=== PATIENT | male | born 1930 | race Asian ===

== ENCOUNTER 2019-10-24 18:59 | Inpatient (IN) | payer OTHER, SELFPAY ==
[~2019-10-24] VITALS: Ht 165.1 cm; Wt 58.5 kg
[2019-10-24 19:30] VITALS: BP 154/85
--- NOTE | 2019-10-24 19:30 | NUR ---
CONSUELO FROM [facility] FOR C/O ALOC SINCE THE AM PER EMS. PT IS RESPONSIVE ONLY TO PAINFUL STIMULI. 97% IN 15L NON REBREATHER. GCS 10. RESP EVEN AND LABORED, SHALLOW. DIMIMISHED LUNG SOUNDS IN BILAT BASES. VSS. PATIENT IS A COVID POSITIVE AND PLACED IN ISO BED 9. PMHX NOT LIMITED TO: ALZHEIMERS, ANEMIA, ENCEPALOPATHY. DM II, COVID19
--- NOTE | 2019-10-24 19:31 | NUR ---
BIBA TO BED 9
--- NOTE | 2019-10-24 19:40 | NUR ---
EKG PERFORMED AT BEDSIDE
--- NOTE | 2019-10-24 19:41 | NUR ---
UNABLE TO CONTACT FAMILY. PHONE GOES TO .
--- NOTE | 2019-10-24 19:52 | NUR ---
FAMILY MEMBER EDUARD PHIPPS CALLED BACK. ON PHONE WITH DAVID DORMAN
[2019-10-24 20:10] LABS: BASOPHILS # (AUTO) 0.1 K/uL (0.00-0.22); BASOPHILS % (AUTO) 0.9 % (0.0-2.0); HEMATOCRIT 35.1 % (36-52); HEMOGLOBIN 11.3 g/dL (12.0-18.0); LYMPHOCYTES # (AUTO) 0.9 K/uL (2.0-11.5); LYMPHOCYTES % (AUTO) 13.9 % (20.5-51.1); MEAN CORPUSCULAR HEMOGLOBIN 30 pg (27-31); MEAN CORPUSCULAR HGB CONC 32 g/dL (33-37); MEAN CORPUSCULAR VOLUME 93.5 fL (80-94); MONOCYTES # (AUTO) 0.5 K/uL (0.8-1.0); MONOCYTES % (AUTO) 7.3 % (1.7-9.3); NEUTROPHILS # (AUTO) 4.9 K/uL (1.8-7.7); NEUTROPHILS % (AUTO) 77.9 % (42.2-75.2); PLATELET COUNT (AUTO) 165 K/uL (140-450); RED BLOOD CELL COUNT(AUTO) 3.76 MIL/uL (4.20-6.10); RED CELL DISTRIBUTION WIDTH 14.6 % (11.6-13.7); WHITE BLOOD COUNT (AUTO) 6.3 K/uL (4.8-10.8)
[2019-10-24 20:19] LABS: ANION GAP 10.7 (8-16); CARBON DIOXIDE 31.3 mmol/L (21-32); CHLORIDE 110 mmol/L (98-107); CREATININE 1.3 mg/dL (0.6-1.3); GLUCOSE 175 mg/dL (74-106); SODIUM SERUM 148 mmol/L (136-145); UREA NITROGEN, BLOOD 31 mg/dL (7-18)
[2019-10-24 20:24] LABS: ALBUMIN 2.3 g/dL (3.4-5.0); ASPARTATE AMINOTRANSFERASE 33 U/L (15-37); TOTAL BILIRUBIN 0.3 mg/dL (0.0-1.0)
[2019-10-24 21:00] LABS: FIBRINOGEN 404 mg/dL (200-400)
--- NOTE | 2019-10-24 21:01 | NUR ---
COVID SWAB PERFORMED AT BEDSIDE AND WALKED TO LAB
[2019-10-24 21:09] LABS: D-DIMER 3740 ng/ml (0-400)
[2019-10-24 21:19] LABS: APPEARANCE,URINE CLEAR (CLEAR); BILIRUBIN,URINE NEGATIVE (NEGATIVE); BLOOD, URINE TRACE-I (NEGATIVE); COLOR,URINE YELLOW (YELLOW); LEUKOCYTE ESTERASE ,URINE TRACE (NEGATIVE); NITRITE, URINE POSITIVE (NEGATIVE); UGLUCOSE NEGATIVE (NEGATIVE)
[2019-10-24] MEDS ORDERED: NACL 0.9% 1,000 ML IV ONE (21:40)
[2019-10-24] MEDS ORDERED: VANCOMYCIN 1,000 MG in DEXTROSE 5% 250 ML IV ONE (21:40)
[2019-10-24] MEDS ORDERED: CEFEPIME 2,000 MG in DEXTROSE 5% 100 ML IV ONE (21:40)
[2019-10-24] MEDS ORDERED: ACETAMINOPHEN 650 MG SUPP RC ONE (21:45)
[2019-10-24] MEDS ORDERED: CEFEPIME 2,000 MG VIAL IV ONE (22:11)
[2019-10-24] MEDS ORDERED: VANCOMYCIN 1,000 MG VIAL ONE (22:12)
[2019-10-24] MEDS ORDERED: DOCUSATE SODIUM 100 MG GELCAP PO PRN ×2 (22:20→22:30)
[2019-10-24] MEDS ORDERED: MORPHINE SULFATE 2 MG/ML SYR IVP PRN ×2 (22:20→22:30)
[2019-10-24] MEDS ORDERED: ONDANSETRON 4 MG/2 ML VIAL IM/IVP PRN ×2 (22:20→22:30)
[2019-10-24] MEDS ORDERED: ACETAMINOPHEN 325 MG TAB PO PRN ×2 (22:20→22:30)
[2019-10-24] MEDS ORDERED: HYDROcodone/APAP 5/325 MG 1 TAB TAB PO PRN ×2 (22:20→22:30)
--- NOTE | 2019-10-24 22:30 | NUR ---
PT TAKEN OFF NON-REBREATHER AND PT BEGAN TO DESAT TO 85-88%. PT PLACED ON 2L O2 VIA NASAL CANNULA. PT MAINTAINTED AT 97% ON 2L .
[2019-10-24 22:42] LABS: PROTHROMBIN TIME 9.4 secs (10.8-13.4)
[2019-10-24] MEDS ORDERED: MEMA28CE1 PO (23:07)
[2019-10-24] MEDS ORDERED: ALEN70TA1 PO (23:07)
[2019-10-24] MEDS ORDERED: AZEL6SOL6 OP (23:07)
[2019-10-24 23:45] VITALS: BP 139/79
--- NOTE | 2019-10-24 23:45 | NUR ---
RECEIVED PT AND BEDSIDE REPORT FROM ER NURSE AT 2345 ON 10/24/2019. PT IS A&O X1, APHASIC. RESPIRATIONS ARE EVEN AND UNLABORED. CHEST RISE IS SYMMETRICAL. PT CAME FROM [facility] AND IS DX WITH COVID 19, PNA, AND ALOC. PT IS ON 3 L NC AND HAS O2 SAT AT 96%. SKIN IS WARM, DRY, AND INTACT. IV IS IN THE RIGHT WRIST A 22 GAUGE RUNNING NS. NO SIGNS OF DISTRESS NOTED. BED IS IN THE LOWEST POSITION AND CALL LIGHT IS IN REACH. DROPLET AND CONTACT PRECAUTIONS ARE IN PLACE. PLAN OF CARE WAS DISCUSSED AND WILL CONTINUE TO MONITOR.
--- NOTE | 2019-10-24 23:46 | NUR ---
Patient will be admitted to care of DR MCCLURE. Admited to TELE. Will go to room 123Belongings list completed. Report to LINDEN/SHAYY RUIZ.
[2019-10-24 23:50] LABS: CHOL/HDL RATIO 2.6 (1-4.5); PHOSPHORUS 3.2 mg/dL (2.5-4.9); THYROID STIMULATING HORMONE 0.42 uIU/mL (0.34-3.74)
[2019-10-25] MEDS ORDERED: DEXTROSE 50% 50 ML SYR IVP PRN (00:20)
--- NOTE | 2019-10-25 00:25 | NUR ---
AN ORDER FOR NG TUBE PLACEMENT IS ACTIVE. A 16 FR NG TUBE WAS PLACED THROUGH THE LEFT NARE INTO THE STOMACH. PT TOLERATED THE PROCEDURE WELL. O2 SAT WAS 96% THROUGHOUT THE PROCEDURE AND PATIENT WAS PLACED BACK ON 3L NC FOLLOWING THE PROCEDURE. USED A PUFF OF AIR AND THE STETHOSCOPE TO ENSURE CORRECT PLACEMENT WHICH WAS HEARD IN THE STOMACH. PT WAS GIVEN EDUCATION PRIOR TO INSERTION. WILL FOLLOW UP WITH XRAY FOR CORRECT PLACEMENT.
[2019-10-25] MEDS: DEXT 5% / NACL 0.9% 500 ML IV SCH ×3 (01:18→06:38)
--- NOTE | 2019-10-25 01:55 | NUR ---
INFORMED DR. DIEGO THAT PT LACTIC ACID TRENSING UP FROM 2.9 TO 3.6
--- NOTE | 2019-10-25 02:48 | NUR ---
X-RAY RESULT FOR NGT INSERTION REVEALED: NGT TUBE IN THE STOMACH. CALLED [employer] FOR THE TUBE FEEDING, SAID HE WILL BRING IT TO THE STATION. AWAITING THE TUBE FEEDING FORMULA TO BE DELIVERED.
[2019-10-25] MEDS ORDERED: cefTRIAXone 1,000 MG VIAL ONE (03:21)
--- NOTE | 2019-10-25 03:30 | NUR ---
CHARGE NURSE CHECKED THE NGT TUBE BEFORE STARTING THE NGT TUBE FEEDING, WITH XRAY RESULT THAT IS IS WELL PLACED WITHIN THE STOMACH, OK TO START THE NGT TUBE FEEDING.
--- NOTE | 2019-10-25 03:30 | NUR ---
CHANGED PATIENT AND TURNED PATIENT TO SIDE, OFFLOADED PRESSURE AREAS WITH PILLOWS. PT IS THIN, CACHECTIC BUT NO PRESSURE SORES, LOWER EXTREMITY CONTRACTED, PLACED PILLOWS AND HEELS OFFLOADED.
--- NOTE | 2019-10-25 03:50 | NUR ---
TUBE FEEDING FLUCERNA 1.2 IS RUNNING AT 10 CC PER HOUR PER ORDER. NG TUBE WAS CHECKED FOR PLACEMENT BEFORE STARTING FEEDING AND IT WAS NOTED IN THE STOMACH. THERE ARE ALSO WATER FLUSHES OF 200 CC Q 6 HR. WILL MONITOR PT TO ENSURE HE IS TOLERATING FEEDING WELL AND WILL ENHANCE TO 50 CC PER HOUR IF TOLERATED. NO SIGNS OF DISTRESS NOTED Addendum: 10/25/19 at 0412 by Akila Griffin RN JORDYN
[2019-10-25 04:00] VITALS: BP 146/76
--- NOTE | 2019-10-25 04:00 | NUR ---
ASKED DR. DIEGO THAT IF IT IS OK TO GIVE THE ROCEPHIN IVF AT 0400AM, HE SAID OK TO GIVE IT THIS TIME.
--- NOTE | 2019-10-25 04:00 | NUR ---
PT IS AWAKE IN A SEMI FOWLERS POSITION. SOME COUGHING IS PRESENT AND NON-PRODUCTIVE. VS WERE TAKEN AND TEMPERATURE WAS 100.4 F. PT WAS GIVEN TYLENOL 650 MG PRN PER ORDER. WILL CONTINUE TO MONITOR TEMPERATURE. PT'S SOILED LINENS WERE CHANGED AND GOWN WAS CHANGED. PT IS REPOSITIONED Q 2 HR.
--- NOTE | 2019-10-25 06:00 | NUR ---
PT IS SLEEPING WITH THE HOB AT 45 DEGREES. THE PT DOES NOT HAVE FACIAL GRIMACING AND DOESN'T SHOW ANY SIGNS OF DISTRESS. NG TUBE FEEDING IS RUNNING AND IV IS PATENT AND INTACT.
[2019-10-25 06:42] LABS: BASOPHILS # (AUTO) 0.1 K/uL (0.00-0.22); BASOPHILS % (AUTO) 0.6 % (0.0-2.0); HEMATOCRIT 33.3 % (36-52); HEMOGLOBIN 10.7 g/dL (12.0-18.0); LYMPHOCYTES # (AUTO) 0.8 K/uL (2.0-11.5); LYMPHOCYTES % (AUTO) 9.1 % (20.5-51.1); MEAN CORPUSCULAR HEMOGLOBIN 30 pg (27-31); MEAN CORPUSCULAR HGB CONC 32 g/dL (33-37); MEAN CORPUSCULAR VOLUME 93.8 fL (80-94); MONOCYTES # (AUTO) 0.4 K/uL (0.8-1.0); MONOCYTES % (AUTO) 4.2 % (1.7-9.3); NEUTROPHILS # (AUTO) 7.5 K/uL (1.8-7.7); NEUTROPHILS % (AUTO) 86.1 % (42.2-75.2); PLATELET COUNT (AUTO) 144 K/uL (140-450); RED BLOOD CELL COUNT(AUTO) 3.56 MIL/uL (4.20-6.10); RED CELL DISTRIBUTION WIDTH 14.4 % (11.6-13.7); WHITE BLOOD COUNT (AUTO) 8.7 K/uL (4.8-10.8)
--- NOTE | 2019-10-25 06:44 | NUR ---
PT'S SON WAS CONTACTED TO OBTAIN CONSENT FOR COVID 19 PLASMA TRANSFUSION. LEFT A MESSAGE ON THE PHONE NUMBER IN THE CHART TO RETURN OUR CALL.
[2019-10-25 07:03] LABS: ANION GAP 13.1 (8-16); CARBON DIOXIDE 27.3 mmol/L (21-32); CHLORIDE 110 mmol/L (98-107); CREATININE 1.4 mg/dL (0.6-1.3); GLUCOSE 200 mg/dL (74-106); POTASSIUM 3.4 mmol/L (3.5-5.1); SODIUM SERUM 147 mmol/L (136-145); UREA NITROGEN, BLOOD 30 mg/dL (7-18)
[2019-10-25 07:15] LABS: MAGNESIUM 1.9 mg/dL (1.8-2.4); PHOSPHORUS 1.5 mg/dL (2.5-4.9)
--- NOTE | 2019-10-25 07:26 | NUR ---
[facility] CALLED AND REORTED LACTIC ACID IS 4.8, TRENDING UP FROM LAST READING. WILL ENDORSE TO RM LUCAS, TRIED CALLING DR. MCKINNEY BUT IS NOT ANSWERING, ALREADY AT THE AM CONFERENCE.
[2019-10-25] MEDS: BLOOD GLUCOSE MONITORING 1 DEV DEV FS SCH ×4 (07:31→20:17)
[2019-10-25] MEDS: INSULIN LISPRO SLIDING SCALE 100 UNITS/ML VIAL SUBQ PRN ×3 (07:31→20:17)
--- NOTE | 2019-10-25 07:40 | NUR ---
RECEIVED PT AND BEDSIDE REPORT FROM FLUID JET CUTTER OPERATOR RNSARA, FOR CONTINUITY OF CARE. PT IS A&O X1, APHASIC. RESPIRATIONS ARE EVEN AND UNLABORED. CHEST RISE IS SYMMETRICAL. PT ON 3 L NC AND HAS O2 SAT AT 96%. SKIN IS WARM, DRY, AND INTACT. IV IS IN THE RIGHT WRIST A 22G RUNNING D5NS 110ML/HR. NO SIGNS OF DISTRESS NOTED. BED IS IN THE LOWEST POSITION AND CALL LIGHT IS IN REACH. DROPLET AND CONTACT PRECAUTIONS ARE IN PLACE FOR R/O COVID-19. PLAN OF CARE WAS DISCUSSED AND WILL CONTINUE TO MONITOR.
[2019-10-25] MEDS ORDERED: DEXT 5% /NACL 0.9% 1,000 ML IV SCH (07:48)
[2019-10-25 08:00] VITALS: BP 114/56
--- NOTE | 2019-10-25 09:27 | NUR ---
PATIENT HAS BEEN SCREENED AND CATEGORIZED HIGH NUTRITION RISK. PATIENT WILL BE SEEN WITHIN 1-2 DAYS OF ADMISSION. 10/25/19-10/26/[address]
[2019-10-25] MEDS: ASCORBIC ACID 500 MG TAB PO SCH (10:20)
[2019-10-25] MEDS: AZITHROMYCIN 250 MG TAB PO SCH (10:20)
[2019-10-25] MEDS: DEXAMETHASONE 4 MG TAB PO SCH (10:21)
[2019-10-25] MEDS: ZINC SULF 220 MG CAP PO SCH (10:25)
--- NOTE | 2019-10-25 10:41 | NUR ---
MORNING MEDICATIONS GIVEN. NO SIGNS OF DISTRESS NOTED. TUBE FEEDING CHECKED THROUGH AUSCULTATION AND IN PLACE, NO RESIDUALS NOTED. V/S TAKEN AND WNL. WILL CONTINUE TO MONITOR.
--- NOTE | 2019-10-25 10:50 | NUR ---
PT. IS CHANGED, CLEANED AND TURNED. NO SIGNS OF DISTRESS NOTED. SKIN IS INTACT. WILL CONTINUE TO MONITOR.
[2019-10-25 12:00] VITALS: BP 141/59
--- NOTE | 2019-10-25 12:36 | NUR ---
PT. ADMITTED WITH LOW MARILEE SCALE AT RISK,CONTINUE TO FOLLOW PRESSURE ULCER PREVENTION INTERVENTIONS. -TURN AND REPOSITION PATIENT Q 2H -ASSESS AND MONITOR SKIN CONDITION DURING POSITION CHANGE -OFFLOAD BILATERAL HEELS BY PLACING PILLOWS UNDER CALVES AT ALL TIMES, UNLESS OTHERWISE CONTRAINDICATED -PRESSURE REDISTRIBUTION BY PLACING PILLOWS AND OFFLOADING SACRALCOCCYX -KEEP SKIN CLEAN AND DRY AT ALL TIMES.
--- NOTE | 2019-10-25 15:13 | NUR ---
10/25/19 RD INITIAL ASSESSMENT COMPLETED PLEASE REFER TO NUTRITION ASSESSMENT UNDER CARE ACTIVITY FOR ESTIMATED NUTRITIONAL NEEDS. 1. RECOMMEND INCREASING GOAL RATE OF GLUCERNA 1.2 TO 60 ML/HR X 24 HOURS -THIS WILL PROVIDE 1728 CALORIES AND 86 GM PROTEIN WHICH MEETS 92% OF ESTIMATED CALORIE NEEDS AND 100% OF ESTIMATED PROTEIN NEEDS 2. CONTINUE FREE WATER FLUSH OF 200 ML Q6H 3. RECOMMEND A SWALLOWING EVALUATION IF PATIENT BECOMES MORE ORIENTED FOR PO INTAKE 4. RD TO FOLLOW-UP 2-3 DAYS, HIGH RISK JOSEFINA LAMBERT RD
[2019-10-25 15:31] LABS: RBC,URINE 0-5 /HPF (0-5); WBC,URINE 0-5 /HPF (0-5)
[2019-10-25 16:00] VITALS: BP 136/74
--- NOTE | 2019-10-25 16:20 | NUR ---
PT. IS CLEANED, CHANGED, AND TURNED. NO SIGNS OF DISTRESS NOTED. WILL CONTINUE TO MONITOR.
--- NOTE | 2019-10-25 16:24 | NUR ---
DC PLANNIN YRS OLD MALE PATIENT WAS ADMITTED FROM [facility] WITH A DX OF ALOC, COVID-19 AND PNEUMONIA . PATIENT HAS A HX OF. DM DEMENTIA ,ANEMIA AND OSTEOPOROSIS. CXR SHOWED BILATERAL PULMONARY OPACITIES. STARTED IV VANCOMYCIN ROCEPHIN AND IVF BLOOD AND URINE CULTURE PENDING. COVID TEST PENDING. CONSULTED WITH HOME HOUSEKEEPER. DC PLAN TO GO BACK TO [facility] TO FOLLOW. Addendum: 10/27/19 at 1207 by Blanca Aparicio CM DC PLANNING: COVID TEST POSITIVE, SEEN BY DR ALVARENGA AND DR PERAZA ,CONTINUE WITH DECADRON PO AND IV ABX AND PRONE POSITION LEVAQUIN. DC PLAN TO GO BACK TO [facility] ,FAXED ALL THE PAPER WORK , TRANSPORT WILL BE COVERED [employer] [facility] ,[facility] [phone] . TO FOLLOW Addendum: 10/27/19 at 1410 by Pam Nam CM SPOKE WITH NICKIE WITH [employer], SET UP TRANSPORTATION FOR TOMORROW MORNING WITH [facility] 11:00 A.M. REFERENCE #[id number]. THIS WILL BE AN AMBULANCE COMPANY SINCE THE PATIENT IS COVID POSITIVE. Addendum: 10/27/19 at 1555 by Pam Nam CM COLTEN FROM [employer] [facility] CALLED AND STATED THAT TRANSPORTATION CAN NOT MAKE IT AT 11:00 AM BUT WILL BE HERE AT 1:00 AM TO TRANSPORT PATIENT. Addendum: 10/27/19 at 1611 by Blanca Aparicio CM DC PLANING: RECEIVED A CALL FROM [facility] [phone] SPOKE WITH COLTEN SIEGEL UP TIME WILL BE 1 PM ON Wednesday10/29/19 . Addendum: 10/27/19 at 1642 by Pam Nam CM FAXED PATIENTS CLINICALS TO [facility] WILL FOLLOW UP WITH ARAVIND.
--- NOTE | 2019-10-25 17:50 | NUR ---
4 UNITS OF INSULIN GIVEN FOR BLOOD GLUCOSE OF 212. NO SIGNS OF DISTRESS NOTED. RESIDUAL FROM TUBE FEEDING CHECKED WITH VOLUME OF 20ML. TUBE FEEDING RESUMED AND INCREASED TO 60ML/HR. IVF CHANGED TO NS AT 100ML/HR. WILL CONTINUE TO MONITOR.
[2019-10-25] MEDS: SODIUM PHOS / POTASSIUM PHOS 1 PKT PDR PO SCH (18:02)
[2019-10-25] MEDS: NACL 0.9% 1,000 ML IV SCH (18:16)
--- NOTE | 2019-10-25 19:20 | NUR ---
ENDORSED TO PIPER INSTALLER RN FOR CONTINUITY OF CARE.
--- NOTE | 2019-10-25 19:21 | NUR ---
RECEIVED BEDSIDE REPORT FROM DAY SHIFT NURSE, ALY. FOR CONTINUITY OF CARE. PT IS A&O X1, APHASIC. RESPIRATIONS ARE EVEN AND UNLABORED. CHEST RISE IS SYMMETRICAL WITH 3 L NC. SKIN IS WARM, DRY, AND INTACT. IV SITE IN THE RIGHT WRIST A 22G RUNNING NS 100MLS/HR. NO SIGNS OF DISTRESS NOTED. ENHANCED PRECAUTIONS ARE IN PLACE FOR R/O COVID-19. BED IS IN THE LOWEST POSITION AND CALL LIGHT IS IN REACH. WILL CONTINUE TO MONITOR.
[2019-10-25 20:00] VITALS: BP 113/68
--- NOTE | 2019-10-25 20:17 | NUR ---
BS CHECKED, 224. ADMINISTERED INSULIN SLIDING SCALE. GIVEN HEPARIN MD ORDERED. PT TOLERATED WELL.
--- NOTE | 2019-10-25 22:08 | NUR ---
PT SLEEPING IN THE BED COMFORTABLY. NO ACUTE DISTRESS NOTED.
[2019-10-26] VITALS: BP 116/65
--- NOTE | 2019-10-26 00:02 | NUR ---
VS WITHIN PT'S BASELINE. WILL CONTINUE TO MONITOR.
--- NOTE | 2019-10-26 02:12 | NUR ---
PT SLEEPING IN BED COMFORTABLY. NO ACUTE DISTRESS NOTED.
[2019-10-26] MEDS: NACL 0.9% 1,000 ML IV SCH ×3 (03:48→22:35)
--- NOTE | 2019-10-26 03:49 | NUR ---
GIVEN ROCEPHIN MD ORDERED. CHANGED TUBE FEEDING. RESIDUAL 0 NOTED.
[2019-10-26 04:00] VITALS: BP 107/58
[2019-10-26] MEDS: BLOOD GLUCOSE MONITORING 1 DEV DEV FS SCH ×4 (05:54→20:39)
[2019-10-26] MEDS: INSULIN LISPRO SLIDING SCALE 100 UNITS/ML VIAL SUBQ PRN ×3 (05:55→20:40)
--- NOTE | 2019-10-26 05:55 | NUR ---
BS CHECKED, 242, ADMINISTERED INSULIN SLIDING SCALE. PT TOLERATED WELL.
[2019-10-26 06:17] LABS: BASOPHILS % (AUTO) 0.4 % (0.0-2.0); HEMATOCRIT 29.9 % (36-52); HEMOGLOBIN 9.7 g/dL (12.0-18.0); LYMPHOCYTES # (AUTO) 1.1 K/uL (2.0-11.5); LYMPHOCYTES % (AUTO) 9.1 % (20.5-51.1); MEAN CORPUSCULAR HEMOGLOBIN 30 pg (27-31); MEAN CORPUSCULAR HGB CONC 33 g/dL (33-37); MEAN CORPUSCULAR VOLUME 92.9 fL (80-94); MONOCYTES # (AUTO) 0.4 K/uL (0.8-1.0); NEUTROPHILS # (AUTO) 10.7 K/uL (1.8-7.7); NEUTROPHILS % (AUTO) 87.5 % (42.2-75.2); PLATELET COUNT (AUTO) 146 K/uL (140-450); RED BLOOD CELL COUNT(AUTO) 3.22 MIL/uL (4.20-6.10); RED CELL DISTRIBUTION WIDTH 14.2 % (11.6-13.7); WHITE BLOOD COUNT (AUTO) 12.2 K/uL (4.8-10.8)
--- NOTE | 2019-10-26 06:56 | NUR ---
PT IN STABLE CONDITION. WILL ENDORSE TO DAY SHIFT NURSE FOR CONTINUOUS CARE.
[2019-10-26 06:59] LABS: ALBUMIN 1.7 g/dL (3.4-5.0); ANION GAP 11.4 (8-16); ASPARTATE AMINOTRANSFERASE 20 U/L (15-37); CARBON DIOXIDE 25.5 mmol/L (21-32); CHLORIDE 110 mmol/L (98-107); CREATININE 0.9 mg/dL (0.6-1.3); GLUCOSE 241 mg/dL (74-106); LACTATE DEHYDROGENASE 204 U/L (85-227); POTASSIUM 3.9 mmol/L (3.5-5.1); SODIUM SERUM 143 mmol/L (136-145); TOTAL BILIRUBIN 0.2 mg/dL (0.0-1.0); UREA NITROGEN, BLOOD 30 mg/dL (7-18)
--- NOTE | 2019-10-26 07:24 | NUR ---
RECEIVED REPORT FROM RESEARCH TECHNOLOGIST NURSE SITA FOR CONTINUITY OF CARE. PT IS RESTING ON BED AND AROUSABLE TO SHAKING, EYES OPEN FOR A FEW SECONDS. RESPIRATION EVEN AND UNLABORED ON 3 LPM VIA NC, SPO2 AT 97%. FLACC 0. NO SIGNS OF ACUTE DISTRESS NOTED. IV ON R WRIST 22G, CLEAN AND INTACT, INFUSING AT PER MD ORDER, NS AT 100 ML/HR. NG TUBE IN L NARE, INFUSING GLUCERNA 1.2 AT 60 ML/HR PER HOUR, AND H2O FLUSH 200 ML AT Q6H.SKIN CLEAN AND DRY. PT IS INCONTINENT AND BEDBOUND, ARMS AND LEGS ARE RIGID/ CONTRACTED. ENHANCED DROPLET ISOLATION IN PLACE AND SIGN POSTED ON DOOR. SAFETY MEASURES IN PLACE. BED IN LOW POSITION, BED LOCKED AND BED ALARM ACTIVATED.
[2019-10-26 08:00] VITALS: BP 117/69
--- NOTE | 2019-10-26 08:29 | NUR ---
RECEIVED CRITICAL LAB FOR LACTIC ACID 3, DR CLEMENTE MADE AWARE AND NO ORDER RECEIVED AT THIS TIME.
[2019-10-26] MEDS: SODIUM PHOS / POTASSIUM PHOS 1 PKT PDR PO SCH ×3 (09:38→16:35)
[2019-10-26] MEDS: ASCORBIC ACID 500 MG TAB PO SCH (09:38)
[2019-10-26] MEDS: AZITHROMYCIN 250 MG TAB PO SCH (09:39)
[2019-10-26] MEDS: ZINC SULF 220 MG CAP PO SCH (09:39)
[2019-10-26] MEDS: DEXAMETHASONE 4 MG TAB PO SCH (09:39)
--- NOTE | 2019-10-26 09:43 | NUR ---
CHECKED NG TUBE RESIDUAL AND RECEIVED < 10 ML. ADMINISTERED SCHEDULED MEDS PER MD ORDER, MEDS EDUCATION PROVIDED AND REINFORCEMENT NEEDED DUE TO MENTAL STATUS, PT OPENS EYES TO SHAKING. RESPIRATION EVEN AND UNLABORED ON 3 LPM VIA NC, SPO2 AT 98%. FLACC 0. NO SIGNS OF ACUTE DISTRESS NOTED. TELE MONITOR ATTACHED. SAFETY MEASURES IN PLACE AND BED ALARM ACTIVATED.
--- NOTE | 2019-10-26 10:11 | NUR ---
RECEIVED A CALL FROM PT'S DAUGHTER EDUARD [phone], UPDATED EDUARD WITH PT'S CURRENT CONDITION, EDUARD WAS AWARE.
--- NOTE | 2019-10-26 11:25 | NUR ---
PERINATAL COORDINATOR NOTE: Information Provided By [facility] Comments PATIENT IS NOT ALERT/ORIENTED. PATIENT IS NON-VERBAL. Center Receptionist, Realtionship and Phone Number EVANGELIST SILVA [phone] Healthcare Power of Property Management Specialist No Does Patient Have a POLST Yes Identifying Problems No Social Work Triggers Is A Social Work Consult Needed No Mandate Report Filed No Explanation Of Identifying Problems PATIENT IS AN 89-YEAR-OLD MALE ADMITTED FOR ALOC. PATIENT HAS PMHX OF DIABETES, DEMENTIA, ANEMIA, AND OSTEOPOROSIS. [facility] From [facility] - [phone] Pre-Admission Level Of Functioning Status Total Care Prior Resources/Services Used In Last 12 Months SNF Snf Skilled Nursing Support No Caregiver Issues Financial Issues No Known Financial Issue Factors/Needs SNF/NH Placement Transportation Services Explanation And Or Other Factors Affecting/Possible DC Needs PATIENT IS RETIREMENT AND ON A BED HOLD. Discharge Plan Comments TENTATIVE DISCHARGE PLAN IS FOR PATIENT TO RETURN TO [facility]. DC Plan Status Initiated
--- NOTE | 2019-10-26 11:43 | NUR ---
CHECKED BLOOD GLUCOSE AND RECEIVED 142, NO COVERAGE NEEDED. VITAL SIGNS TAKEN. PT'S EYES OPEN TO SHAKING AND WENT BACK TO SLEEP. RESPIRATION EVEN AND UNLABORED ON 3 LPM VIA NC, SPO2 AT 99%. FLACC 0. NO SIGNS OF DISTRESS NOTED. TELE MONITOR ATTACHED. SAFETY MEASURES IN PLACE. BED ALARM ACTIVATED.
[2019-10-26 12:00] VITALS: BP 109/59
--- NOTE | 2019-10-26 13:32 | NUR ---
CHECKED NG TUBE RESIDUAL AND RECEIVED < 10 ML. ADMINISTERED SCHEDULED MED VIA NG TUBE, FLUSHED BEFORE AND AFTER. PT'S EYES OPEN TO SHAKING. FLACC 0. RESPIRATION EVEN AND UNLABORED. NO SIGNS OF DISTRESS NOTED. TELE MONITOR ATTACHED. SAFETY MEASURES IN PLACE. BED ALARM ACTIVATED.
--- NOTE | 2019-10-26 15:40 | NUR ---
WITH ASSIST FROM LAST TRIMMER, REPOSITION PATIENT AND UPLOADED PRESSURE ON BACK, LEGS AND ARMS. APPLIED HEEL PROTECTORS ON BOTH HEELS. PT TOLERATED WELL. PATIENT OPENS HIS EYES BUT DOES NOT ANSWER QUESTIONS WHEN ASKING. FLACC 0. NO SIGNS OF DISTRESS NOTED. TELE MONITOR ATTACHED. SAFETY MEASURES IN PLACE. BED ALARM ACTIVATED.
[2019-10-26 16:00] VITALS: BP 129/69
--- NOTE | 2019-10-26 16:44 | NUR ---
CHECKED BLOOD GLUCOSE AND RECEIVED 166, ADMINISTERED 2 UNIT OF HUMALOG AND SCHEDULED MEDS PER MD ORDER. PT IS RESTING ON BED AND EYES OPEN TO SHAKING. RESPIRATION EVEN AND UNLABORED ON 3 LPM VIA NC, SPO2 AT 100% AT THIS TIME. FLACC 0. NO SIGNS OF DISTRESS NOTED. TELE MONITOR ATTACHED. SAFETY MEASURES IN PLACE. BED ALARM ACTIVATED.
[2019-10-26] MEDS ORDERED: LEVOFLOXACIN 500 MG/D5W PREMIX 100 ML IV SCH (17:00)
--- NOTE | 2019-10-26 17:56 | NUR ---
PT IS RESTING ON BED COMFORTABLY AT THIS TIME. EYES OPEN TO REPOSITIONING. FLACC 0. RESPIRATION EVEN AND UNLABORED ON 3 LPM VIA NC, SPO2 AT 99%. NO SIGNS OF DISTRESS NOTED. SAFETY MEASURES IN PLACE. BED ALARM ACTIVATED.
--- NOTE | 2019-10-26 19:15 | NUR ---
REPORT RECEIVED FROM AM NURSE AT BEDSIDE. PT IN STABLE CONDITION. AAOX0. PT ALOC WITH A HISTORY OF DEMENTIA. FLACC 0. NO SOB ON 3L NC THAT IS GOING INTO THE MOUTH DUE TO NG TUBE PLACEMENT. PT IS BEDBOUND. PT HAS NG TUBE IN THE LEFT NARES RUNNING TUBE FEEDINGS. GLUCERNA 1.2@60ML/HR WITH 200 H20 FLUSH Q6H. IV SITE R WRIST 22G RUNNING NS@100ML/HR PATENT AND INTACT. SKIN WARM, DRY, AND INTACT WITH NO OPEN WOUNDS. BED LOCKED IN LOW POSITION. CALL HO WITHIN REACH. SAFETY PRECAUTION IN PLACE. ALL NEEDS MET AT THIS TIME.
[2019-10-26 20:00] VITALS: BP 113/62
--- NOTE | 2019-10-26 20:40 | NUR ---
HEPARIN GIVEN SUBQ. BS 249. 4 UNITS OF HUMALOG GIVEN. PT TOLERATED WELL.
--- NOTE | 2019-10-26 22:30 | NUR ---
PT IN BED. NO S/S OF DISTRESS NOTED. WILL CONTINUE TO MONITOR.
[2019-10-27] VITALS: BP 120/72
--- NOTE | 2019-10-27 00:15 | NUR ---
PT SLEEPING COMFORTABLY IN BED. NO S/S OF DISTRESS NOTED. FLACC 0. NO SOB ON 3L O2 VIA NC. AFEBRILE. WILL CONTINUE TO MONITOR.
--- NOTE | 2019-10-27 02:20 | NUR ---
PT SLEEPING COMFORTABLY BUT AROUSABLE. NO S/S OF DISTRESS NOTED. RESPIRATIONS EVEN, UNLABORED, AND WNL. WILL CONTINUE TO MONITOR.
[2019-10-27 04:00] VITALS: BP 122/75
[2019-10-27 06:46] LABS: BASOPHILS % (AUTO) 0.2 % (0.0-2.0); HEMATOCRIT 27.5 % (36-52); HEMOGLOBIN 9.1 g/dL (12.0-18.0); LYMPHOCYTES # (AUTO) 0.6 K/uL (2.0-11.5); LYMPHOCYTES % (AUTO) 4.8 % (20.5-51.1); MEAN CORPUSCULAR HEMOGLOBIN 30 pg (27-31); MEAN CORPUSCULAR HGB CONC 33 g/dL (33-37); MEAN CORPUSCULAR VOLUME 91.3 fL (80-94); MONOCYTES # (AUTO) 0.4 K/uL (0.8-1.0); MONOCYTES % (AUTO) 3.1 % (1.7-9.3); NEUTROPHILS # (AUTO) 11.5 K/uL (1.8-7.7); NEUTROPHILS % (AUTO) 91.9 % (42.2-75.2); PLATELET COUNT (AUTO) 157 K/uL (140-450); RED BLOOD CELL COUNT(AUTO) 3.02 MIL/uL (4.20-6.10); RED CELL DISTRIBUTION WIDTH 14.4 % (11.6-13.7); WHITE BLOOD COUNT (AUTO) 12.5 K/uL (4.8-10.8)
[2019-10-27] MEDS: BLOOD GLUCOSE MONITORING 1 DEV DEV FS SCH ×4 (06:58→21:00)
--- NOTE | 2019-10-27 06:58 | NUR ---
BS 149. NO INSULIN COVERAGE NEEDED.
[2019-10-27 07:07] LABS: ALBUMIN 1.5 g/dL (3.4-5.0); ANION GAP 12.2 (8-16); ASPARTATE AMINOTRANSFERASE 23 U/L (15-37); CARBON DIOXIDE 23.5 mmol/L (21-32); CHLORIDE 108 mmol/L (98-107); CREATININE 0.7 mg/dL (0.6-1.3); GLUCOSE 183 mg/dL (74-106); LACTATE DEHYDROGENASE 197 U/L (85-227); POTASSIUM 3.7 mmol/L (3.5-5.1); SODIUM SERUM 140 mmol/L (136-145); TOTAL BILIRUBIN 0.1 mg/dL (0.0-1.0); UREA NITROGEN, BLOOD 26 mg/dL (7-18)
--- NOTE | 2019-10-27 07:10 | NUR ---
RECEIVED REPORT FROM NIGHT NURSE FOR CONTINUITY OF CARE, PT IS STABLE, PT IS APHASIC, PT IS ASLEEP, NO SIGNS OF DISTRESS NOTED, RESPIRATIONS ARE EVEN AND UNLABORED ON 3L NASAL CANNULA, PT HAS LEFT NARES NGT INFUSING GLUCERNA 1.2 AT 60ML/H WITH WATER FLUSH OF 200ML/H Q6H, PT IS A FALL RISK, PT HAS RIGHT WRIST 22G INFUSING NORMAL SALINE AT 100ML/H, SKIN INTACT, BED IN LOW POSITION, SAFETY MEASURES IN PLACE, WILL INTRODUCE SELF AND UPDATE WHITEBOARD, CALL LIGHT WITHIN REACH.
[2019-10-27 08:00] VITALS: BP 114/66
[2019-10-27] MEDS: NACL 0.9% 1,000 ML IV SCH (08:17)
[2019-10-27] MEDS: DEXAMETHASONE 4 MG TAB PO SCH (08:27)
[2019-10-27] MEDS: ASCORBIC ACID 500 MG TAB PO SCH (08:28)
[2019-10-27] MEDS: SODIUM PHOS / POTASSIUM PHOS 1 PKT PDR PO SCH ×3 (08:28→17:17)
[2019-10-27] MEDS: ZINC SULF 220 MG CAP PO SCH (08:29)
--- NOTE | 2019-10-27 08:46 | NUR ---
ADMINISTERED SCHEDULED MEDICATION, MEDICATION EDUCATION GIVEN, PT TOLERATED FINE, PT IS STABLE, NO SIGNS OF DISTRESS NOTED, CALL LIGHT WITHIN REACH.
[2019-10-27 09:27] LABS: MAGNESIUM 2.1 mg/dL (1.8-2.4); PHOSPHORUS 1.8 mg/dL (2.5-4.9)
--- NOTE | 2019-10-27 11:15 | NUR ---
PT RESTING IN BED, NO SIGNS OF DISTRESS NOTED, RESPIRATIONS ARE EVEN AND UNLABORED ON 3L OXYGEN NASAL CANNULA, CALL LIGHT WITHIN REACH.
[2019-10-27 12:00] VITALS: BP 118/65
[2019-10-27] MEDS: INSULIN LISPRO SLIDING SCALE 100 UNITS/ML VIAL SUBQ PRN ×2 (13:06→17:10)
--- NOTE | 2019-10-27 13:11 | NUR ---
ADMINISTERED SCHEDULED MEDICATION, ADMINISTERED 2 UNITS OF HUMALOG FOR BLOOD GLUCOSE OF 170, MEDICATION EDUCATION GIVEN, PT TOLERATED WELL, PT IS STABLE, CALL LIGHT WITHIN REACH.
--- NOTE | 2019-10-27 15:16 | NUR ---
ADMINISTERED ORDERED GLUCERNA 1.2 AT 60ML/H WITH WATER FLUSH OF 200ML/H Q6H, PT TOLERATING WELL, PT IS STABLE, NO SIGNS OF DISTRESS NOTED, CALL LIGHT WITHIN REACH.
[2019-10-27 16:00] VITALS: BP 110/77
--- NOTE | 2019-10-27 16:31 | NUR ---
10/27/19 RD FOLLOW UP COMPLETED PLEASE REFER TO NUTRITION ASSESSMENT UNDER CARE ACTIVITY FOR ESTIMATED NUTRITIONAL NEEDS. 1. CONTINUE GLUCERNA 1.2 TO 60 ML/HR X 24 HOURS -THIS WILL PROVIDE 1728 CALORIES AND 86 GM PROTEIN WHICH MEETS 92% OF ESTIMATED CALORIE NEEDS AND 100% OF ESTIMATED PROTEIN NEEDS 2. CONTINUE FREE WATER FLUSH OF 200 ML Q6H 3. RECOMMEND A SWALLOWING EVALUATION IF PATIENT BECOMES MORE ORIENTED FOR PO INTAKE 4. RD TO FOLLOW-UP 2-3 DAYS, HIGH RISK JOSEFINA LAMBERT RD
[2019-10-27] MEDS ORDERED: LEVOFLOXACIN 250 MG/D5 PREMIX 50 ML IV SCH (17:00)
--- NOTE | 2019-10-27 17:23 | NUR ---
ADMINISTERED 4 UNITS OF HUMALOG FOR BLOOD GLUCOSE OF 213, ADMINISTERED SCHEDULED MEDICATION, MEDICATION EDUCATION GIVEN, PT TOLERATED WELL, PT IS STABLE, NO SIGNS OF DISTRESS NOTED, CALL LIGHT WITHIN REACH.
--- NOTE | 2019-10-27 19:30 | NUR ---
GAVE REPORT TO NIGHT NURSE FOR CONTINUITY OF CARE, PT IS STABLE.
--- NOTE | 2019-10-27 19:33 | NUR ---
RECEIVED PT FROM TREMAYNE LUCAS DAY SHIFT , REPORT GIVEN AT BED SIDE PT IS CLOSE EYES BUT RESPONDING TO SHAKING ON 06 05 LTS VIA NC, ON TELMETRY SR BBB PT CONTRACTED G TUBE FEEDING WELL TOLERATED 5 ML RESIDUAL REPOSITIONED INITIAL ASSESSMENT DONE Addendum: 10/28/19 at 0558 by Julisa Bar RN PT HAS NG TUBE FEEDING
--- NOTE | 2019-10-27 19:33 | NUR ---
PT HAS NGTUBE FEEDING PT DOES NOT HAVE G TUBE FEEDING
[2019-10-27 20:00] VITALS: BP 113/62
--- NOTE | 2019-10-27 21:30 | NUR ---
BLOOD SUGAR TEST 149 NOT COVERAGE, PT REPOSITIONED Q2H LINEN CHANGED NOT DISTRESS NOTED 149
[2019-10-28] VITALS: BP 113/70
--- NOTE | 2019-10-28 01:00 | NUR ---
PT QUIET ON TELE SR BBB G TUBE FEEDING WELL TOLERATED, REPOSITSIONED Q2H NOT SOB NOTED Addendum: 10/28/19 at 0557 by Julisa Bar RN PT HAS NG TUBE FEEDING , PT DOES NOT HAVE GT TUBE FEEDING
[2019-10-28 04:00] VITALS: BP 121/75
--- NOTE | 2019-10-28 04:30 | NUR ---
PT HAS BEEN MONITORING CLOSE REPOSITIONED Q2H NOT SOB NOTED PT CONTRACTED NGTUBE FEEDING WELL TOLERATED ON TELE SR BBB
[2019-10-28] MEDS: NACL 0.9% 1,000 ML IV SCH (04:51)
[2019-10-28] MEDS: BLOOD GLUCOSE MONITORING 1 DEV DEV FS SCH ×2 (05:37→12:30)
[2019-10-28] MEDS: INSULIN LISPRO SLIDING SCALE 100 UNITS/ML VIAL SUBQ PRN (05:39)
--- NOTE | 2019-10-28 05:59 | NUR ---
PT REMAIN STABLE NOT SOB NOTED , CONTRACTED NG TUBE FEEDING WELL TOLERATED, REPOSITIONED Q2H
--- NOTE | 2019-10-28 06:24 | NUR ---
PT WILL BE ENDORSED TO DAY SHIFT NURSE FOR CONTINUE OF CARE
--- NOTE | 2019-10-28 07:25 | NUR ---
RECEIVED PATIENT REPORT FROM GUIDE TOUR NURSE AT BEDSIDE FOR CONTINUITY OF CARE. PATIENT SPONTANEOUSLY OPENS EYES, NONVERBAL, FLACC-0. HAS NG TUBE WITH TF INFUSING CONTINUOUSLY. IV SITE INTACT ASYMPTOMATIC INFUSING IVF WELL. PATIENT HAD BILATERAL HEEL PROTECTORS. UPDATED BOARD. PATIENT ON DROPLET PRECAUTION FOR POSITIVE COVID. SAFETY AND SEIZURE PRECAUTIONS IN PLACE, CALL LIGHT WITHIN REACH, BED IN LOWEST POSITION WITH BRAKES AND ALARM ON, WILL CONTINUE TO MONITOR PATIENT.
[2019-10-28 08:00] VITALS: BP 116/71
[2019-10-28] MEDS: SODIUM PHOS / POTASSIUM PHOS 1 PKT PDR PO SCH ×2 (08:01→12:58)
[2019-10-28] MEDS: ASCORBIC ACID 500 MG TAB PO SCH (08:01)
[2019-10-28] MEDS: ZINC SULF 220 MG CAP PO SCH (08:01)
[2019-10-28] MEDS: DEXAMETHASONE 4 MG TAB PO SCH (08:01)
--- NOTE | 2019-10-28 08:01 | NUR ---
NGTUBE AUSCULTATED FOR PLACEMENT, 10ML OF RESIDUAL NOTED. ORDERED MEDICATIONS GIVEN WITH 100 ML OF WATER. PATIENT TOLERATED IT. FLACC-0. RESPIRATIONS EVEN AND UNLABORED. WILL CONTINUE TO MONITOR PATIENT.
[2019-10-28 08:10] LABS: ALBUMIN 1.4 g/dL (3.4-5.0); ANION GAP 12.3 (8-16); ASPARTATE AMINOTRANSFERASE 32 U/L (15-37); CARBON DIOXIDE 23.6 mmol/L (21-32); CHLORIDE 107 mmol/L (98-107); CREATININE 0.7 mg/dL (0.6-1.3); GLUCOSE 135 mg/dL (74-106); LACTATE DEHYDROGENASE 246 U/L (85-227); POTASSIUM 3.9 mmol/L (3.5-5.1); SODIUM SERUM 139 mmol/L (136-145); TOTAL BILIRUBIN 0.2 mg/dL (0.0-1.0); UREA NITROGEN, BLOOD 23 mg/dL (7-18)
[2019-10-28] MEDS ORDERED: LEVO750T2 PO (08:17)
[2019-10-28] MEDS ORDERED: ZINC220C28 PO (08:17)
[2019-10-28] MEDS ORDERED: VITC500 PO (08:17)
[2019-10-28] MEDS ORDERED: ASPI81EC97 PO (08:17)
[2019-10-28] MEDS ORDERED: DEC4 PO (08:17)
[2019-10-28 09:40] LABS: BASOPHILS % (AUTO) 0.1 % (0.0-2.0); HEMATOCRIT 27.4 % (36-52); HEMOGLOBIN 9.1 g/dL (12.0-18.0); LYMPHOCYTES # (AUTO) 0.8 K/uL (2.0-11.5); LYMPHOCYTES % (AUTO) 6.2 % (20.5-51.1); MEAN CORPUSCULAR HEMOGLOBIN 30 pg (27-31); MEAN CORPUSCULAR HGB CONC 33 g/dL (33-37); MEAN CORPUSCULAR VOLUME 91.2 fL (80-94); MONOCYTES # (AUTO) 0.5 K/uL (0.8-1.0); MONOCYTES % (AUTO) 3.9 % (1.7-9.3); NEUTROPHILS # (AUTO) 11.1 K/uL (1.8-7.7); NEUTROPHILS % (AUTO) 89.8 % (42.2-75.2); PLATELET COUNT (AUTO) 173 K/uL (140-450); RED BLOOD CELL COUNT(AUTO) 3.01 MIL/uL (4.20-6.10); RED CELL DISTRIBUTION WIDTH 14.4 % (11.6-13.7); WHITE BLOOD COUNT (AUTO) 12.4 K/uL (4.8-10.8)
[2019-10-28] MEDS ORDERED: BISACODYL 10 MG SUPP RC SCH (11:30)
--- NOTE | 2019-10-28 11:35 | NUR ---
PATIENT VOIDED. ORDERED PRN SUPPOSITORY GIVEN. PATIENT TOLERATED IT. PATIENT CLEANED UP AND CHANGED. WILL CONTINUE TO MONITOR PATIENT.
[2019-10-28 12:00] VITALS: BP 115/80
--- NOTE | 2019-10-28 12:15 | NUR ---
CALLED PATIENT'S SON EVANGELIST TO UPDATE HIM ABOUT PATIENT'S TRANSFER, SPOKE TO DAUGHTER IN LAW EDUARD. SHE IS AWARE OF PATIENT'S TRANSFER BACK TO [facility]. CALLED [facility], REPORT GIVEN TO JON LUCAS, SHE IS AWARE OF PATIENT'S TRANSFER AT 1300 VIA [facility].
--- NOTE | 2019-10-28 12:45 | NUR ---
PATIENT HAD SMALL SOFT BM. PATIENT CLEANED UP. PATIENT NOW CLEAN AND DRY, WAITING FOR TRANSPORT TO COME TO TAKE PATIENT BACK TO [facility].
--- NOTE | 2019-10-28 13:20 | NUR ---
IV CATHETER REMOVED, IV CATHETER INTACT, MINIMAL BLEEDING NOTED. ID BANDS CUT, TELE MONITOR REMOVED. [facility] HERE TO TAKE PATIENT BACK TO [facility].
--- NOTE | 2019-10-28 13:30 | NUR ---
PATIENT WHEELED OFF FLOOR WITH [facility] STAFF. PATIENT TOOK ALL HIS BELONGINGS WITH HIM.
== END 2019-10-28 13:30 | DRG 871 ==
LOC: EEVIPCON 18:59 → MED 18:59 → MTU 22:24 → MED 22:49
PROVIDERS: ADMIT Family Medicine; ATTEND Family Medicine
DX: A41.9 Sepsis, unspecified organism (principal); U07.1 COVID-19; J12.89 Other viral pneumonia; E43 Unspecified severe protein-calorie malnutrition; G93.41 Metabolic encephalopathy; N39.0 Urinary tract infection, site not specified; E87.0 Hyperosmolality and hypernatremia; R65.20 Severe sepsis without septic shock; Z68.21 Body mass index [BMI] 21.0-21.9, adult; E87.8 Other disorders of electrolyte and fluid balance, not elsewhere classified; D64.9 Anemia, unspecified; E11.9 Type 2 diabetes mellitus without complications; E83.39 Other disorders of phosphorus metabolism; E87.6 Hypokalemia; F03.90 Unspecified dementia, unspecified severity, without behavioral disturbance, psychotic disturbance, mood disturbance, and anxiety; M81.0 Age-related osteoporosis without current pathological fracture; E86.0 Dehydration; J30.2 Other seasonal allergic rhinitis; B96.1 Klebsiella pneumoniae [K. pneumoniae] as the cause of diseases classified elsewhere
CPT/HCPCS: 31500; 36415; 62270; 71045; 80048; 80053; 81001; 82728; 82948; 83036; 83605; 83615; 83735; 83880; 84100; 84443; 84484; 85025; 85379; 85384; 85610; 85651; 85730; 86140; 87040; 87081; 87086; 87186; 93005; 96365; 96367; 99291; J0692; J0696; J1644; J1956; J3370; J7030; J7042; J7060; Q0092; U0003-CS

== ENCOUNTER 2020-02-08 12:04 | Inpatient (IN) | payer OTHER, SELFPAY ==
[~2020-02-08] VITALS: Ht 165.1 cm; Wt 46.7 kg
[2020-02-08 12:04] VITALS: BP 137/85
[~2020-02-08 12:04] MED LIST: ACET-2619 PO; ALEN1TAB2 NG; AZEL6SOL6 OP; MEMA28CE1 NG; MULT-2253 PO; MULT-2611 NG; PANT40EC PO
--- NOTE | 2020-02-08 12:29 | NUR ---
EMT at bedside for blood draw Addendum: 02/08/20 at 1303 by HARLAN FOR EKG NOT BLOOD DRAW
--- NOTE | 2020-02-08 12:30 | NUR ---
Reach Lift Truck Driver at bedside for blood draw
--- NOTE | 2020-02-08 12:58 | NUR ---
manager ed at bedside for blood draw
--- NOTE | 2020-02-08 12:59 | NUR ---
89 Y/O NONVERBAL MALE BIBA FROM [facility] C/O ABNORMAL LABS: LOW HEMOGLOBIN ~7 G/DL PT EYES OPENING SPONTANEOUSLY, NONVERBAL. AT BASELINE PER SNF STAFF. BUE CONTRACTED. G-TUBE IN PLACE, DRESSING C/D/I. VERY THIN AND ILL-APPEARING. PT CONNECTED TO BEDSIDE MONITOR. HX: DM, COVID POSITIVE IN OCTOBER, GERD, PNA, ANEMIA, DEPRESSION, ALZHEMIERS, HTN
[2020-02-08 13:18] LABS: BASOPHILS % (AUTO) 0.4 % (0.0-2.0); EOSINOPHILS # (AUTO) 0.1 K/uL (0-0.4); EOSINOPHILS % (AUTO) 1.6 % (0.0-4.0); HEMATOCRIT 24.4 % (36-52); HEMOGLOBIN 7.5 g/dL (12.0-18.0); LYMPHOCYTES # (AUTO) 1.4 K/uL (2.0-11.5); LYMPHOCYTES % (AUTO) 15.9 % (20.5-51.1); MEAN CORPUSCULAR HEMOGLOBIN 27 pg (27-31); MEAN CORPUSCULAR HGB CONC 31 g/dL (33-37); MEAN CORPUSCULAR VOLUME 86.5 fL (80-94); MONOCYTES # (AUTO) 0.8 K/uL (0.8-1.0); MONOCYTES % (AUTO) 9.3 % (1.7-9.3); NEUTROPHILS # (AUTO) 6.2 K/uL (1.8-7.7); NEUTROPHILS % (AUTO) 72.8 % (42.2-75.2); PLATELET COUNT (AUTO) 557 K/uL (140-450); RED BLOOD CELL COUNT(AUTO) 2.82 MIL/uL (4.20-6.10); RED CELL DISTRIBUTION WIDTH 18.9 % (11.6-13.7); WHITE BLOOD COUNT (AUTO) 8.6 K/uL (4.8-10.8)
[2020-02-08 13:34] LABS: PROTHROMBIN TIME 9.8 secs (10.8-13.4)
[2020-02-08 13:38] LABS: ALBUMIN 1.7 g/dL (3.4-5.0); ANION GAP 9.5 (8-16); ASPARTATE AMINOTRANSFERASE 26 U/L (15-37); CARBON DIOXIDE 34.5 mmol/L (21-32); CHLORIDE 117 mmol/L (98-107); CREATININE 1.1 mg/dL (0.6-1.3); GLUCOSE 147 mg/dL (74-106); TOTAL BILIRUBIN 0.2 mg/dL (0.0-1.0)
[2020-02-08 13:40] LABS: SODIUM SERUM 157 mmol/L (136-145); UREA NITROGEN, BLOOD 68 mg/dL (7-18)
[2020-02-08] MEDS ORDERED: NACL 0.9% 1,000 ML IV ONE (13:50)
[2020-02-08] MEDS ORDERED: ASCO500T95 GT (13:52)
[2020-02-08] MEDS ORDERED: MULT-1328 GT (13:52)
[2020-02-08] MEDS ORDERED: MEMA10TA GT (13:52)
[2020-02-08] MEDS ORDERED: PANT40EC GT (13:52)
[2020-02-08] MEDS ORDERED: ALEN70TA1 GT (13:52)
[2020-02-08] MEDS ORDERED: KEN.1C TP (13:52)
--- NOTE | 2020-02-08 14:00 | NUR ---
CONFIRMED WITH DR. SONY LEO TO ADMIN 0.9% NS WITH PT'S HYPERNATREMIA
--- NOTE | 2020-02-08 14:17 | NUR ---
ATTEMPTED TO REACH [facility] [phone] (PERSON TO NOTIFY) TO OBTAIN CONSENT FOR BLOOD TRANSFUSION PT IS NONVERBAL. VOICEMAIL BOX IS FULL, UNABLE TO LEAVE MESSAGE.
--- NOTE | 2020-02-08 14:23 | NUR ---
OBTAINED TELEPHONE CONSENT FOR BLOOD TRANSFUSION [facility] (SON)
--- NOTE | 2020-02-08 14:38 | NUR ---
WILL ADMIN BLOOD TRANFUSION AFTER 1L NS DONE INFUSING. PT HAS #22G IN LEFT FA, POOR VEINS.
--- NOTE | 2020-02-08 15:15 | NUR ---
Note antony in ED - 02/08/20 at 1722 by HARALN Patient will be admitted to care of Dr. Lyle. Admited to TELE. Will go to room 123A. Belongings list completed. Report to Marilyn GREEN. Blood transfusion paperwork given to Marilyn Green.
--- NOTE | 2020-02-08 15:23 | NUR ---
ELECTRICAL HARDWARE ENGINEER AT BEDSIDE ATTEMPTING TO OBTAIN LARGER 20G OR GREATER IV ACCESS PRIOR TO BLOOD TRANSFUSION
--- NOTE | 2020-02-08 15:28 | NUR ---
DR. CARDOZA AT BEDSIDE FOR FOBT
--- NOTE | 2020-02-08 15:29 | NUR ---
ATTEMPTED TO REACH SON MAX AT [phone] TO NOTIFY SON OF PLAN FOR ADMISSION TO HOSPITAL. NO ANSWER, VOICEMAIL BOX FULL.
[2020-02-08] MEDS ORDERED: PANTOPRAZOLE 40 MG INJ VIAL IVP ONE (15:35)
[2020-02-08] MEDS ORDERED: DOCUSATE SODIUM 100 MG GELCAP PO PRN (15:40)
[2020-02-08] MEDS ORDERED: ACETAMINOPHEN 325 MG TAB PO PRN (15:40)
[2020-02-08] MEDS ORDERED: PANTOPRAZOLE 40 MG INJ VIAL ONE (15:40)
[2020-02-08] MEDS ORDERED: ONDANSETRON 4 MG/2 ML VIAL IM/IVP PRN (15:40)
[2020-02-08] MEDS ORDERED: HYDROcodone/APAP 5/325 MG 1 TAB TAB PO PRN (15:40)
[2020-02-08] MEDS: PANTOPRAZOLE 80 MG in NACL 0.9% 100 ML IV SCH (15:46)
--- NOTE | 2020-02-08 15:53 | NUR ---
Luanne swab collected and sent to lab.
--- NOTE | 2020-02-08 16:00 | NUR ---
1 UNIT PRBC TRANSFUSION STARTED AT THIS TIME
[2020-02-08 16:07] LABS: MAGNESIUM 3.2 mg/dL (1.8-2.4); PHOSPHORUS 3.7 mg/dL (2.5-4.9)
[2020-02-08 17:15] VITALS: BP 130/76
--- NOTE | 2020-02-08 17:15 | NUR ---
Patient will be admitted to care of Dr. Lyle. Admited to TELE. Will go to room 123A. Belongings list completed. Report to Marilyn GREEN. Blood transfusion paperwork given to Marilyn Green.
--- NOTE | 2020-02-08 17:15 | NUR ---
RECEIVED REPORT FROM ER NURSE BOY PATIENT IS BROUGHT TO THE UNIT VIA GURNEY, AWAKE, NON VERBAL ON OXYGEN 2LPM VIA NC, IV SITES INTACT AND PATENT. RIGHT HAND G20 PRBC 1 UNIT INFUSING AT 198ML AND LEFT HAND G22 PROTONIX AT 80ML. RAPID CLAUDIO NEGATIVE. NPO EXCEPTS MEDS, SIGRID INTACT SKIN ON THE RIGHT AND LEFT HIP PHOTO TAKEN BY ER NURSE. ER NURSE GAVE 1L NSS BOLUS AND PROTONIX 40MG IVP. VITAL SIGNS CHECK BP 130/76 VA 108 RR 17 TEMP 97 O2SAT 100.ORIENTED TO ROOM, SAFETY MEASURES IN PLACE AND CALL LIGHT WITHIN REACH. WILL CONTINUE TO MONITOR.
--- NOTE | 2020-02-08 18:00 | NUR ---
CHECK LEFT AND HIP WOUND CLEANED WITH NSS AND CHANGED DRESSING.
[2020-02-08] MEDS ORDERED: DEXTROSE 50% 50 ML SYR IVP PRN (18:55)
--- NOTE | 2020-02-08 18:55 | NUR ---
BLOOD TRANSFUSION DONE AT THIS TIME NO REACTION AND PATIENT IS STABLE. CHECK VITAL SIGNS BP 135/73 OR 101 RR 17 T 96.6 OXYGEN SATURATION 100%.
[2020-02-08] MEDS: DEXT 5% / NACL 0.45% 500 ML IV SCH (18:59)
--- NOTE | 2020-02-08 19:20 | NUR ---
RECEIVED BEDSIDE REPORT FROM DAY SHIFT NURSE FOR CONTINUITY OF CARE. PT IS AWAKE, NONVERBAL. LAYING IN SEMI FOWLERS POSITION. ON 2L O2 NC WITH O2 SAT AT 100%. PT IS ON TELE MONITORING. SCD'S ARE IN PLACE. G TUBE IS PATENT WITH NO RESIDUAL. BREATHING IS UNLABORED. CHEST RISE AND FALL IS SYMMETRICAL. SKIN IS WARM AND DRY. WOUNDS ON THE LEFT AND RIGHT HIP. IV IS IN THE LEFT HAND 22 GAUGE AND RIGHT HAND 20 GAUGE. THE IV IS CURRENTLY RUNNING PROTONIX IN AT 10 ML PER HOUR. PLAN OF CARE WAS DISCUSSED. BED IS IN THE LOWEST POSITION AND CALL LIGHT IS WITHIN REACH. FALL PRECAUTIONS IN PLACE.
--- NOTE | 2020-02-08 19:30 | NUR ---
ENDORSED TO NIGHT NURSE FOR CONTINUITY OF CARE. PT IS STABLE.
--- NOTE | 2020-02-08 19:50 | NUR ---
SPOKE TO EUDARD, DAUGHTER IN LAW, ON THE PHONE. UPDATED HER ON THE PLAN OF CARE. INFORMED HER THAT PT WAS ADMITTED TO THE MEDICAL SURGICAL TELEMETRY FLOOR. ALL QUESTIONS WERE ANSWERED. ASKED EDUARD ABOUT CODE STATUS. SHE STATED HE DID NOT HAVE A POLST BUT WANTED A MODIFIED CODE WITH NO CHEST COMPRESSIONS, NO INTUBATION OR ARTIFICIAL AIRWAY, IV MEDS OKAY, AND G TUBE OKAY. WILL RELAY MESSAGE TO ADMITTING DOCTOR.
--- NOTE | 2020-02-08 19:55 | NUR ---
INFORMED DR. TABOR ABOUT THE MODIFIED CODE OF THE PT. ORDER WILL BE PLACED FOR MODIFIED CODE.
[2020-02-08 20:00] VITALS: BP 127/69
[2020-02-08] MEDS: BLOOD GLUCOSE MONITORING 1 DEV DEV FS SCH (20:59)
[2020-02-08] MEDS: TRIAMCINOLONE 0.1% CRM 80 GM TUBE TP SCH (21:00)
--- NOTE | 2020-02-08 21:10 | NUR ---
PT IS ASLEEP. CHEST RISE AND FALL IS SYMMETRICAL. BREATHING IS UNLABORED. ON 2L O2 NC WITH O2 SAT AT 100%. NO DISTRESS NOTED.
--- NOTE | 2020-02-08 22:05 | NUR ---
BUSINESS MANAGER COLLEGE OR UNIVERSITY IS AT BEDSIDE FOR BLOOD DRAW. WILL MONITOR FOR RESULTS.
[2020-02-08 22:20] LABS: ANION GAP 11.1 (8-16); CARBON DIOXIDE 32.7 mmol/L (21-32); CHLORIDE 122 mmol/L (98-107); GLUCOSE 126 mg/dL (74-106); POTASSIUM 3.8 mmol/L (3.5-5.1); UREA NITROGEN, BLOOD 59 mg/dL (7-18)
--- NOTE | 2020-02-08 22:26 | NUR ---
SPOKE TO [facility] ON THE PHONE AND INFORMED ME OF A CRITICAL LAB OF SODIUM 162. WILL INFORM DOCTOR LEANDER, ADMITTING DOCTOR.
[2020-02-08 22:27] LABS: SODIUM SERUM 162 mmol/L (136-145)
--- NOTE | 2020-02-08 22:35 | NUR ---
INFORMED DR. TABOR OF CRITICAL LAB SODIUM 162. DOCTOR ORDERED D5 0.45% NS AT 50 ML PER HOUR, RECHECK BMP AT 2 AM, AND NEPHRO CONSULT WITH DR. MCCLURE. WILL FOLLOW THROUGH WITH THOSE ORDERS AND MONITOR FOR LAB DRAW AT 2 AM.
--- NOTE | 2020-02-08 23:00 | NUR ---
PT IS REPOSITIONED AND PILLOWS ARE PLACED UNDERNEATH BACK TO OFFSET PRESSURE TO THE HIP. SCD'S ARE IN PLACE. IV'S ARE PATENT AND INFUSING. PT IS STABLE AT THIS TIME.
[2020-02-09] VITALS: BP 130/71
--- NOTE | 2020-02-09 01:00 | NUR ---
PT WAS CHANGED AND REPOSITIONED. SOILED CHUCKS WERE REMOVED AND REPLACED WITH DRY CHUCKS. PT'S DRESSING ON THE TWO WOUNDS ON LEFT AND RIGHT HIP WERE REPLACED. WOUNDS WERE CLEANSED WITH NS AND PATTED DRY. FOUL ODOR IS COMING FROM THE WOUND. PT TOLERATED CLEANING WELL. HE IS NOW PLACED IN THE RIGHT LATERAL POSITION. PILLOWS ARE PLACED IN BETWEEN LEGS AND UNDERNEATH ARMS TO PREVENT FROM VARGAS. BED IS IN THE LOWEST POSITION.
[2020-02-09] MEDS ORDERED: PANTOPRAZOLE 40 MG INJ VIAL ONE (01:48)
[2020-02-09] MEDS: PANTOPRAZOLE 80 MG in NACL 0.9% 100 ML IV SCH (01:51)
[2020-02-09 02:23] LABS: ANION GAP 10.6 (8-16); CARBON DIOXIDE 33.9 mmol/L (21-32); CHLORIDE 124 mmol/L (98-107); CREATININE 1.1 mg/dL (0.6-1.3); GLUCOSE 141 mg/dL (74-106); POTASSIUM 4.5 mmol/L (3.5-5.1); UREA NITROGEN, BLOOD 58 mg/dL (7-18)
[2020-02-09 02:28] LABS: SODIUM SERUM 164 mmol/L (136-145)
--- NOTE | 2020-02-09 02:28 | NUR ---
SPOKE TO ASSOCIATE CONSULTING ENGINEER ON THE PHONE AND THEY INFORMED ME THAT THE SODIUM IS 164. I WILL REPORT THIS CRITICAL LAB TO DOCTOR FARM SERVICE ADVISER.
--- NOTE | 2020-02-09 02:45 | NUR ---
PT WAS REPOSITIONED PER PROTOCOL. PILLOWS WERE PLACED UNDERNEATH ARMS AND IN BETWEEN LEGS. PT IS IN THE SUPINE POSITION.
--- NOTE | 2020-02-09 02:55 | NUR ---
SPOKE TO CHARGE NURSE, JIGAR LUCAS ABOUT LAB RESULT. ADVISED TO WAIT TILL 5 AM MORNING LAB DRAW TO REPORT AGAIN THE SODIUM TO THE DOCTOR. ORDERS ALREADY RECEIVED IN THE PRIOR TEXT MESSAGE.
--- NOTE | 2020-02-09 03:00 | NUR ---
PT IS STABLE AT THIS TIME. ON 2L O2 NC WITH O2 SAT AT 98%. ST ON TELE MONITORING WITH A HR OF 104. PT IS ASLEEP WITH NO DISTRESS. WILL CONTINUE TO MONITOR.
[2020-02-09 04:00] VITALS: BP 128/70
--- NOTE | 2020-02-09 05:05 | NUR ---
ROUNDED ON PT. HE IS ASLEEP BUT AROUSED WITH LIGHT TOUGH. PT IS NONVERBAL AT BASELINE. G TUBE IS IN PLACE WITH LESS THAN 5 ML RESIDUAL. IV IS INFUSING D5 0.45% NS AT 50 ML PER HOUR PER ORDER. SCD'S ARE ON AND BED IS IN THE LOWEST POSITION. FALL PRECAUTIONS IN PLACE. WILL CONTINUE TO MONITOR.
--- NOTE | 2020-02-09 05:32 | NUR ---
OCCULT BLOOD SAMPLE COLLECTED AND SENT TO THE LAB. PT HAD A BM. A SMALL SMEAR BM, BROWN IN COLOR. PT WAS REPOSITIONED AND PLACED IN THE LEFT LATERAL POSITION. PILLOWS ARE SUPPORTING BONY REGIONS.
[2020-02-09] MEDS: BLOOD GLUCOSE MONITORING 1 DEV DEV FS SCH ×4 (06:26→20:50)
[2020-02-09] MEDS: DEXT 5% / NACL 0.45% 500 ML IV SCH (06:26)
[2020-02-09 06:38] LABS: BASOPHILS % (AUTO) 0.8 % (0.0-2.0); EOSINOPHILS # (AUTO) 0.1 K/uL (0-0.4); EOSINOPHILS % (AUTO) 1.6 % (0.0-4.0); HEMATOCRIT 27.4 % (36-52); HEMOGLOBIN 8.8 g/dL (12.0-18.0); LYMPHOCYTES % (AUTO) 16.5 % (20.5-51.1); MEAN CORPUSCULAR HEMOGLOBIN 28 pg (27-31); MEAN CORPUSCULAR HGB CONC 32 g/dL (33-37); MEAN CORPUSCULAR VOLUME 86.2 fL (80-94); MONOCYTES # (AUTO) 0.5 K/uL (0.8-1.0); MONOCYTES % (AUTO) 9.1 % (1.7-9.3); NEUTROPHILS # (AUTO) 4.2 K/uL (1.8-7.7); PLATELET COUNT (AUTO) 485 K/uL (140-450); RED BLOOD CELL COUNT(AUTO) 3.18 MIL/uL (4.20-6.10); RED CELL DISTRIBUTION WIDTH 18.6 % (11.6-13.7); WHITE BLOOD COUNT (AUTO) 5.9 K/uL (4.8-10.8)
[2020-02-09 06:53] LABS: ANION GAP 10.2 (8-16); CARBON DIOXIDE 30.7 mmol/L (21-32); CHLORIDE 122 mmol/L (98-107); GLUCOSE 158 mg/dL (74-106); POTASSIUM 3.9 mmol/L (3.5-5.1); UREA NITROGEN, BLOOD 53 mg/dL (7-18)
[2020-02-09 06:57] LABS: SODIUM SERUM 159 mmol/L (136-145)
--- NOTE | 2020-02-09 07:05 | NUR ---
ENDORSED PT TO DAY SHIFT NURSE FOR CONTINUITY OF CARE. PT IS ASLEEP. NO DISTRESS NOTED. ON 2L O2 NC WITH O2 SAT AT 100%. PLAN OF CARE DISCUSSED.
--- NOTE | 2020-02-09 07:10 | NUR ---
RECEIVED REPORT FROM NIGHT NURSE PT IS SLEEPING NO DISTRESS NOTED ON 2LPM OXYGEN VIA NC, NON VERBAL, NPO EXCEPT MEDS. WITH GTUBE, ON STRICT I&O, SKIN NON INTACT ON KEFT AND RIGHT HIP. IV SITES INTACT ON LEFT HAND AND RIGHT HAND. SAFETY MEASURES IN PLACE, CALL LIGHT WITHIN REACH. WILL CONTINUE TO MONITOR.
[2020-02-09 08:00] VITALS: BP 142/80
--- NOTE | 2020-02-09 08:44 | NUR ---
PATIENT HAS BEEN SCREENED AND CATEGORIZED HIGH NUTRITION RISK. PATIENT WILL BE SEEN WITHIN 1-2 DAYS OF ADMISSION. 02/09/20-02/10/[address]
[2020-02-09] MEDS: INSULIN LANTUS 100 UNITS/ML 10 ML VIAL SUBQ SCH (09:00)
[2020-02-09] MEDS ORDERED: AZELASTINE HCL OP SCH (09:00)
[2020-02-09] MEDS: MEMANTINE 10 MG TAB GT SCH (09:00)
[2020-02-09] MEDS: DEXT 5% / NACL 0.45% 1,000 ML IV SCH ×2 (09:22→23:03)
--- NOTE | 2020-02-09 09:30 | NUR ---
US CHEST/MEDIASTINUM DONE AT THIS TIME TO RULEOUT QUANTIFY BILATERAL PLEURAL EFFUSION. PT TOLERATED WELL.
--- NOTE | 2020-02-09 09:40 | NUR ---
PT HAD A WOUND EVALUATION BY WOUND CARE LAKESHA CLEANED WITH NORMAL SALINE, PACKED WITH SILVER ANTIMICROBIAL ALGINATE AND COVERED WITH ISLAND DRESSING. RIGHT HIP 3.5X3.5 DEPTH OF 0.5 AND LEFT HIP 3X3 DEPTH 0.3 RIGHT FOOT CLEANED AND COVERED WITH DRESSING, REDNESS ON THE FIRST METATARSAL RIGHT FOOT.
[2020-02-09] MEDS: PANTOPRAZOLE 40 MG INJ VIAL IVP SCH (09:50)
--- NOTE | 2020-02-09 10:00 | NUR ---
WOUND CARE EVALUATION NOTE: REASON FOR EVALUATION: LOW MARILEE SCALE AND HIPS WOUND SKIN ASSESSMENT DONE WITH THIS 89 Y/O MALE PT ADMITTED FROM SNF TO [facility] WITH INITIAL DX OF ABNORMAL LABS. PMH OF DIABETES, HYPERTENSION AND PT ADMITTED WITH MULTIPLE PRESSURE ULCER WOUNDS. PT IS AWAKE. SKIN IS WARM, DRY AND BONY. SEVERE CONTRACTURES TO BLE NO HAIR GROWTH, NO EDEMA. DORSAL PEDAL PULSES PRESENT AND NORMAL. CAPILLARY REFILLED < 2 SEC. X 10 TOES. PLAN OF CARE DISCUSSED WITH PRIMARY RN. INTEGUMENTARY: -MULTIPLE ECCHYMOSIS TO BILATERAL HANDS SKIN INTACT. -GT SITE VIPIN-STOMA SKIN EROSIONS 0.2X1CM SUPERFICIAL DEPTH, SURROUNDING SKIN RED -INCONTINENT ASSOCIATE DERMATITIS (IAD) TO: B/L GROINS EXTENDED TO PERINEUM, SKIN REDNESS -PRESSURE ULCER INJURY UN-STAGEABLE RIGHT TROCHANTER 3.5X3.5X0.5CM, WOUND BED IS 100% COVERED WITH YELLOW SLOUGH TISSUE, MODERATE AMOUNT PURULENT DRAINAGE, MILD ODOR, WOUND EDGE FLAT, NO UNDERMINING, VIPIN-WOUND SKIN ERYTHEMA -PRESSURE ULCER INJURY UN-STAGEABLE LEFT TROCHANTER 3X3X0.3CM, WOUND BED IS 100% COVERED WITH YELLOW SLOUGH TISSUE, MODERATE AMOUNT SEROSANGUINEOUS DRAINAGE, NO ODOR, WOUND EDGE FLAT, NO UNDERMINING, VIPIN-WOUND SKIN DRY AND INTACT -RIGHT LATERAL FOOT DIABETIC ULCER 0.5X0.5X0.2CM, WOUND BED IS PALE RED, DRY, NO ODOR, HYPERKERATOTIC BORDER , VIPIN-WOUND SKIN DRY AND INTACT -RIGHT 1ST METATARSAL BLANCHABLE REDNESS WITH SKIN INTACT RECOMMENDATIONS: -SURGEON CONSULT FOR DEBRIDEMENT LEFT AND RIGHT TROCHANTERS -R/L GROINS EXTENDED TO PERINEUM APPLY TRIAMCINOLONE ORDERED -CLEANSE GT SITE EROSION WITH NS, PAT DRY APPLY THIN LAYER OF Z GUARD BID AND CERTIFIED HYPERBARIC TECHNOLOGIST - CLEANSE LEFT AND RIGHT TROCHANTERS WITH NS. PAT DRY, APPLY SILVER ALGINATE DRESSING AND COVER WITH DRY DRESSING QD AND PRN IF SOILING -CLEANSE RIGHT LATERAL FOOT WITH NS. PAT DRY, APPLY HYDROGEL AND COVER WITH DRY DRESSING QD AND PRN IF SOILING. - APPLY HEEL RAISER TO BILATERAL HEELS AND OFFLOADING AREA. -APPLY FORM DRESSING TO SACROCOCCYX AND SPINAL BONY AREAS Q7 DAYS AND PRN IF SOILING PREVENTION -OFFLOAD BILATERAL HEELS BY PLACING PILLOWS UNDER CALVES UNLESS OTHERWISE CONTRAINDICATED -PRESSURE REDISTRIBUTION SURFACE THERAPY -TURN AND REPOSITION Q2H, OFFLOAD SACRALCOCCYX AND HIPS BY TURNING RIGHT AND LEFT -CONTINUE TO FOLLOW RD RECOMMENDATIONS ALL ABOVE RECOMMENDATIONS DISCUSSED WITH PRIMARY RN. PLEASE CONTACT WOUND CARE NURSE FOR ANY QUESTION AND CHANGE OF WOUND CONDITION. Addendum: 02/09/20 at 1154 by Piyush Bateman RN (Grace) PER CN INFORMATION NO DEBRIDEMENT DUE TO PT HAD ONE RECENTLY FROM [facility].
[2020-02-09] MEDS: TRIAMCINOLONE 0.1% CRM 80 GM TUBE TP SCH ×2 (10:08→20:51)
--- NOTE | 2020-02-09 10:08 | NUR ---
NAMENDA(MEMANTINE) 10MG NON ADMINISTERED, NO ACCESS TO [email or web address] WILL CALL RITIKA LIEBERMAN FOR THE 37coinsUBE CONNECTOR.
--- NOTE | 2020-02-09 10:25 | NUR ---
COLLECTED URINE FOR URINE CULTURE VIA STRAIGHT CATHETER.
--- NOTE | 2020-02-09 11:05 | NUR ---
DC PLANNIN YRS OLD MALE PATIENT WAS ADMITTED FROM [facility] WITH A DX OF ANEMIA, GI BLEEDING AND PNA. PATIENT HAS A HX OF DM AND HYPERTENSION. CXR SHOWED MODERATE LEFT PLEURAL EFFUSION , CHRONIC BILATERAL LOWER RIB FRACTURES, CT CHEST SHOWED MODERATE LEFT PLEURAL EFFUSION . RAPID COVID TEST PENDING. NA 159 ON TODAY'S LAB. SEEN BY SHOE DYER DR SHANEL BALL STARTED 1/2 NS IVF. DC PLAN TO GO BACK TO [facility]. CM TO FOLLOW
[2020-02-09 11:08] LABS: APPEARANCE,URINE HAZY (CLEAR); BILIRUBIN,URINE NEGATIVE (NEGATIVE); BLOOD, URINE 3+ (NEGATIVE); COLOR,URINE YELLOW (YELLOW); LEUKOCYTE ESTERASE ,URINE 2+ (NEGATIVE); NITRITE, URINE NEGATIVE (NEGATIVE); UGLUCOSE NEGATIVE (NEGATIVE)
[2020-02-09] MEDS ORDERED: SKINTEGRITY HYDROGEL TP PRN (11:15)
[2020-02-09] MEDS ORDERED: FOAM DRESSING TP PRN (11:15)
[2020-02-09] MEDS ORDERED: ALGINATE ROPE MC PRN (11:15)
[2020-02-09 11:27] LABS: WBC,URINE 16-25 (MOD) /HPF (0-5)
--- NOTE | 2020-02-09 11:30 | NUR ---
BLOOD SUGAR MONITORING DINE AT A LEVEL OF 145 MG/DL NO INSULIN COVERAGE.
--- NOTE | 2020-02-09 11:33 | NUR ---
FL[facility]D FROM THE [facility] ASKED FOR UPDATES. ASKING WHEN IS PATIENT GOING TO BE DC. AWARE OF BILATERAL HIPS WOUND AND ACCORDING TO HER S/P DEBRIDEMENT ON 02/07/2020 AT THEIR FACILITY.
[2020-02-09 12:00] VITALS: BP 147/75
--- NOTE | 2020-02-09 12:19 | NUR ---
PATIENT US CHEST/ MEDIASTINUM RESULT MODERATE LEFT PLEURAL EFFUSION 885CC AND NO SIGNIFICANT RIGHT PLEURAL EFFUSION. DR LEANDER MCKENZIE.
[2020-02-09 12:45] LABS: ANION GAP 7.8 (8-16); CARBON DIOXIDE 31.8 mmol/L (21-32); CHLORIDE 121 mmol/L (98-107); CREATININE 1.1 mg/dL (0.6-1.3); GLUCOSE 170 mg/dL (74-106); POTASSIUM 3.6 mmol/L (3.5-5.1); UREA NITROGEN, BLOOD 51 mg/dL (7-18)
[2020-02-09 12:47] LABS: SODIUM SERUM 157 mmol/L (136-145)
--- NOTE | 2020-02-09 13:00 | NUR ---
CLEANED AND CHANGED DRESSING ON THE WOUND, TOOK PICTURES ON THE RIGHT LATERAL FOOT. APPLIED DRESSING AND Z GUARD
--- NOTE | 2020-02-09 13:30 | NUR ---
P.T. NOTES P.T. EVAL COMPLETED; REFER TO EVAL FOR DETAILS.
[2020-02-09] MEDS: ALGINATE ROPE MC SCH (13:39)
[2020-02-09] MEDS: Z-GUARD PASTE TP SCH (13:40)
[2020-02-09] MEDS: SKINTEGRITY HYDROGEL TP SCH (13:41)
[2020-02-09] MEDS: FOAM DRESSING TP SCH (13:41)
--- NOTE | 2020-02-09 14:16 | NUR ---
PATIENTS DAUGHTER IN LAW CALLED EDUARD JIMENEZ, EXPLAINED THE PROCEDURE , RISK AND COMPLICATION TO THE FAMILYGAVE THE CONSENT TO DO US GUIDED THORACENTESIS.
--- NOTE | 2020-02-09 15:06 | NUR ---
ULTRASOUND GUIDED THORACENTESIS DONE AT THIS TIME, PERFORMED BY DR FINNEY. PT IS STABLE.
--- NOTE | 2020-02-09 15:25 | NUR ---
US GUIDED THORACENTESIS DONE AT THIS TIME WITH AN OUTPUT OF 855 CC . BROUGHT SPECIMEN TO LAB.
[2020-02-09 16:00] VITALS: BP 139/75
--- NOTE | 2020-02-09 16:21 | NUR ---
02/09/20 RD INITIAL ASSESSMENT COMPLETED PLEASE REFER TO NUTRITION ASSESSMENT UNDER CARE ACTIVITY FOR ESTIMATED NUTRITIONAL NEEDS. 1. RECOMMEND VITAL AF 1.2 @ 65 ML/HR. START AT 10 ML/HR AND INCREASE BY 20 ML/HR Q6H. -THIS WILL PROVIDE 1872 KCAL AND 117 GM OF PROTEIN, WHICH MEETS 100% OF ESTIMATED NUTRIENT NEEDS 2. RECOMMEND FREE WATER FLUSH OF 100 ML Q4H 3. RECOMMEND VITAMIN C 500 MG BID AND ZINC [address] TO FOLLOW-UP 2-3 DAYS, HIGH RISK JOSEFINA LAMBERT, RD
--- NOTE | 2020-02-09 16:30 | NUR ---
BLOOD SUGAR MONITORING AT A LEVEL OF 139 NO INSULIN COVERAGE.
--- NOTE | 2020-02-09 16:58 | NUR ---
SPOKE TO DR. TABOR, RECOMMENDATIONS FOR TUBE FEEDING CHANGES APPROVED FROM GLUCERNA TO VITAL AT 65 ML/HR. PATIENT IS ON GRAVITY FEEDS AT THE MOMENT, RECOMMENDED TORRES LUCAS TO START AT 5 DROPS PER MINUTE (20ML/HR), AND INCREASE TO 15 DROPS PER MINUTE (65 ML/HR) AFTER 4 HOURS.
--- NOTE | 2020-02-09 17:00 | NUR ---
SPOKE WITH JOSEFINA AND CHANGE TUBE FEEDING VITAL AF 1.2 START AT 20ML/HR( 5ggts/min) and increase by 15ggts/min( GOAL OF 65 ML/HR) Q4H. H2O FLUSH OF 100 ML Q4H.
--- NOTE | 2020-02-09 19:25 | NUR ---
ENDORSED TO NIGHT NURSE FOR CONTINUITY OF CARE PT IS STABLE
--- NOTE | 2020-02-09 19:26 | NUR ---
RECEIVED REPORT FROM DAY SHIFT NURSE. PT IN BED WITH HOB ELEVATED. PT NON-VERBAL, AND NON-AMBULATORY. RESPIRATIONS EVEN AND UNLABORED TO O2 2LPM/NC. ABDOMEN IS SOFT WITH GTUBE IN PLACE. SKIN IS WARM AND DRY. PT WITH WOUNDS ON LEFT AND RIGHT HIP NOTED. IV ACCESS ON LEFT HAND G22 AND RIGHT HAND G20 PATENT AND INTACT, IVF INFUSING WELL. TELE MONITORING IN PLACE. PT SHOWS NO S/SX OF PAIN OR DISCOMFORT AT THIS TIME. FLACC 0. PT KEPT COMFORTABLE. SAFETY MEASURES IN PLACE. CALL LIGHT WITHIN REACH. WILL CONTINUE TO MONITOR.
[2020-02-09 20:00] VITALS: BP 139/80
[2020-02-09] MEDS: ASCORBIC ACID 500 MG/5 ML ORASYR PO SCH (20:50)
--- NOTE | 2020-02-09 20:54 | NUR ---
VITAL SIGNS STABLE. 0ML RESIDUAL NOTED. SCHEDULED MEDS GIVEN ORDERED. FEEDING ONGOING. PT TOLERATING WELL. PT NOT IN DISTRESS. NO S/SX OF PAIN OR DISCOMFORT. SAFETY MEASURES IN PLACE. CALL LIGHT WITHIN REACH. WILL CONTINUE TO MONITOR.
--- NOTE | 2020-02-09 22:12 | NUR ---
PERINEAL CARE DONE WITH PULPER OPERATOR. WOUND CARE DONE WELL. PT ALSO TURNED TO SIDE. PT TOLERATED ALL CARE PROVIDED. PT NOT IN DISTRESS. FLACC 0. FEEDING ONGOING. SAFETY MEASURES IN PLACE. WILL CONTINUE TO MONITOR.
[2020-02-10] VITALS: BP 124/70
--- NOTE | 2020-02-10 00:11 | NUR ---
VITAL SIGNS STABLE. PT IN BED WITH HOB ELEVATED. 0ML RESIDUAL NOTED ON GTUBE. FEEDING INCREASED TO 40ML/HR. PT TOLERATING WELL. SAFETY MEASURES IN PLACE. WILL CONTINUE TO MONITOR.
[2020-02-10] MEDS: Z-GUARD PASTE TP SCH ×2 (01:16→12:58)
--- NOTE | 2020-02-10 02:22 | NUR ---
ROUNDS MADE. PT ASLEEP. O2 IN PLACE. RESPIRATIONS EVEN AND UNLABORED. IVF INFUSING WELL. ONGOING GTUBE FEEDING. NO S/SX OF PAIN OR DISCOMFORT. FLACC 0. PT TURNED TO SIDE. SAFETY MEASURES IN PLACE. WILL CONTINUE TO MONITOR.
[2020-02-10 04:00] VITALS: BP 132/60
--- NOTE | 2020-02-10 04:18 | NUR ---
VITAL SIGNS STABLE. PT NOT IN DISTRESS. O2 IN PLACE. PT TURNED TO SIDE. 5ML RESIDUAL NOTED ON GTUBE. FEEDING INCREASED TO 65ML/HR. PT TOLERATING WELL. SAFETY MEASURES IN PLACE. WILL CONTINUE TO MONITOR.
[2020-02-10 05:20] LABS: APPEARANCE,SPUN,BODY FLUID CLEAR (CLEAR); APPEARANCE,UNSPUN,BODY FLUID SLIGHTLY HAZY (CLEAR); COLOR,BODY FLUID LT YELLOW (LT YELLOW); GLUCOSE,BODY FLUID 138 mg/dL; POLYNUCLEAR, BODY FLUID 3 %; RBC, BODY FLUID 4155 /cu. mm.; SPECIMENTYPE,BODY FLUID THORACENTESIS; TOTAL VOLUME,BODY FLUID 825 mL; WBC, BODY FLUID 83 /cu. mm.
[2020-02-10] MEDS: BLOOD GLUCOSE MONITORING 1 DEV DEV FS SCH ×4 (06:30→21:00)
[2020-02-10] MEDS: INSULIN LISPRO SLIDING SCALE 100 UNITS/ML VIAL SUBQ PRN ×2 (06:31→18:07)
--- NOTE | 2020-02-10 06:32 | NUR ---
BLOOD SUGAR 194. INSULIN COVERAGE GIVEN ORDERED. WILL CONTINUE TO MONITOR.
[2020-02-10 06:55] LABS: BASOPHILS % (AUTO) 0.7 % (0.0-2.0); EOSINOPHILS # (AUTO) 0.2 K/uL (0-0.4); HEMATOCRIT 22.8 % (36-52); HEMOGLOBIN 7.3 g/dL (12.0-18.0); LYMPHOCYTES % (AUTO) 16.5 % (20.5-51.1); MEAN CORPUSCULAR HEMOGLOBIN 28 pg (27-31); MEAN CORPUSCULAR HGB CONC 32 g/dL (33-37); MEAN CORPUSCULAR VOLUME 87.6 fL (80-94); MONOCYTES # (AUTO) 0.6 K/uL (0.8-1.0); MONOCYTES % (AUTO) 9.2 % (1.7-9.3); NEUTROPHILS # (AUTO) 4.4 K/uL (1.8-7.7); NEUTROPHILS % (AUTO) 70.6 % (42.2-75.2); PLATELET COUNT (AUTO) 378 K/uL (140-450); RED BLOOD CELL COUNT(AUTO) 2.61 MIL/uL (4.20-6.10); RED CELL DISTRIBUTION WIDTH 18.8 % (11.6-13.7); WHITE BLOOD COUNT (AUTO) 6.2 K/uL (4.8-10.8)
[2020-02-10 07:08] LABS: ANION GAP 9.9 (8-16); CARBON DIOXIDE 27.3 mmol/L (21-32); CHLORIDE 120 mmol/L (98-107); GLUCOSE 219 mg/dL (74-106); POTASSIUM 3.2 mmol/L (3.5-5.1); SODIUM SERUM 154 mmol/L (136-145); UREA NITROGEN, BLOOD 42 mg/dL (7-18)
[2020-02-10 07:13] LABS: MAGNESIUM 2.3 mg/dL (1.8-2.4); PHOSPHORUS 2.6 mg/dL (2.5-4.9)
--- NOTE | 2020-02-10 07:20 | NUR ---
ENDORSED TO DAY SHIFT NURSE FOR CONTINUITY OF CARE.
--- NOTE | 2020-02-10 07:21 | NUR ---
RECEIVED REPORT FROM RN GYN NURSE. PATIENT LYING DOWN IN BED. NO DISTRESS NOTED. FLACC 0. RESPIRATIONS EVEN, UNLABORED, ON O2 2L/MIN VIA NC. APHASIC, SKIN COLOR APPROPRIATE TO ETHNICITY, WARM TO TOUCH. HAS RIGHT AND LEFT HIP WOUNDS, AND RIGHT LATERAL WOUNDS. DRESSINGS DRY AND INTACT. IV SITE INTACT, PATENT, AND INFUSING IVF PER MD ORDERS. GTUBE SITE INTACT, PATENT, AND INFUSING GTUBE FEEDING PER MD ORDERS. REVIEWED PLAN OF CARE WITH PATIENT. UNABLE TO COMPREHEND. SAFETY MEASURES IN PLACE, CALL LIGHT WITHIN REACH. WILL CONTINUE TO MONITOR.
[2020-02-10 08:00] VITALS: BP 121/66
[2020-02-10] MEDS: TRIAMCINOLONE 0.1% CRM 80 GM TUBE TP SCH ×2 (09:00→21:00)
[2020-02-10] MEDS: INSULIN LANTUS 100 UNITS/ML 10 ML VIAL SUBQ SCH (10:05)
[2020-02-10] MEDS: ZINC SULF 220 MG CAP PO SCH (10:08)
[2020-02-10] MEDS: ASCORBIC ACID 500 MG/5 ML ORASYR PO SCH ×2 (10:09→22:36)
[2020-02-10] MEDS: MEMANTINE 10 MG TAB GT SCH (10:09)
[2020-02-10] MEDS: PANTOPRAZOLE 40 MG INJ VIAL IVP SCH (10:13)
--- NOTE | 2020-02-10 10:14 | NUR ---
SCHEDULED MEDICATIONS DUE GIVEN. WILL CONTINUE TO MONITOR.
[2020-02-10] MEDS: DEXT 5% / NACL 0.45% 1,000 ML IV SCH (11:48)
[2020-02-10 12:00] VITALS: BP 146/70
[2020-02-10] MEDS: SKINTEGRITY HYDROGEL TP SCH (12:57)
[2020-02-10] MEDS: ALGINATE ROPE MC SCH (12:58)
--- NOTE | 2020-02-10 12:58 | NUR ---
SCHEDULED MEDICATIONS DUE GIVEN. NEW IV SITE INSERTED ON LEFT FA #24 ON SECOND ATTEMPT. OLD IV SITE WAS LEAKING. WILL CONTINUE TO MONITOR.
--- NOTE | 2020-02-10 15:30 | NUR ---
ASSISTED MANUFACTURING TEST TECHNICIAN IN CLEANING AND REPOSITIONING PATIENT. WILL CONTINUE TO MONITOR.
[2020-02-10 16:00] VITALS: BP 150/62
--- NOTE | 2020-02-10 18:08 | NUR ---
SCHEDULED MEDICATIONS DUE GIVEN. CONDITION UNCHANGED. PATIENT HAD BM EARLIER, BROWN SOFT. NO BLACK STOOL NOTED. WILL CONTINUE TO MONITOR.
--- NOTE | 2020-02-10 19:25 | NUR ---
GAVE REPORT TO TAXI DRIVER NURSE FOR CONTINUITY OF CARE. PATIENT IN STABLE CONDITION.
--- NOTE | 2020-02-10 19:30 | NUR ---
RECEIVED REPORT FROM AYANNA LUCAS DAYSHIFT NURSE, AY BEDSIDE FOR CONTINUITY OF CARE ,PT IN STABLE CONDITION.
[2020-02-10 20:00] VITALS: BP 152/72
--- NOTE | 2020-02-10 20:30 | NUR ---
PT IN BED AOX1 NO S/S OF PAIN OR DISTRESS NOTED. PT IS AOX1 WITH N/C AT 2 LITERS. PT HAS WOUNDS ON RIGHT AND LEFT HIP WELL RIGHT SIDE OF FOOT. HE HAS A GT TUBE INTACT AND POSITIVE FOR PLACEMENT AND RUNNING VITAL A.F. AT 65MLS/HR. PT HAS BILATERAL UPPER AND LOWER CONTRACTIONS. PT WAS TURNED, CHANGED AND REPOSITIONED IN BED. ALL FALLS, AND ASPIRATION PRECAUTIONS IN PLACE.
[2020-02-10] MEDS ORDERED: POTASSIUM CHLORIDE 10 MEQ TABER PO SCH (21:00)
--- NOTE | 2020-02-10 21:15 | NUR ---
PT FINGERSTICK IS 150. NO HUMALOG COVERAGE NEEDED.
--- NOTE | 2020-02-10 21:30 | NUR ---
PT WAS GIVEN ALL ORDERED AND SCHEDULED MEDS AT THIS TIME. FINGERSTICK IS 150, NO HUMALOG COVERAGE NOTED. ALL ORDERED PRECAUTIONS IN PLACE.
[2020-02-10] MEDS ORDERED: CRUSHER, PILL MC ONE (22:00)
[2020-02-11] VITALS: BP 150/70
--- NOTE | 2020-02-11 | NUR ---
PT IN BED AOX4, PT IS AWAKE AND ALERT. ALL ORDERED PRECAUTIONS IN PLACE. 5 CC OF RESIDUALS NOTED. PT WAS TURNED AND REPOSITIONED IN BED.
--- NOTE | 2020-02-11 | NUR ---
PT IN BED ASLEEP, EYES OPEN SPONTANEOUSLY.PT WAS TURNED, CHANGED AND REPOSITIONED IN BED. GT RUNNING ORDERED. ALL ORDERED PRECAUTIONS IN PLACE.
[2020-02-11] MEDS: Z-GUARD PASTE TP SCH ×2 (01:00→12:29)
[2020-02-11] MEDS: DEXT 5% / NACL 0.45% 1,000 ML IV SCH ×3 (01:08→21:13)
--- NOTE | 2020-02-11 02:00 | NUR ---
PT IN BED ASLEEP, NO S/S OF PAIN OR DISTRESS NOTED. IV SITE INTACT AND LEFT WAS TURNED AND REPOSITIONED I NBED AT FOOT AND RUNNING D5 1/2 ND AT AT 75 MLS/HR. TURNED AND REPOSITIONED IN BED. ALL ORDERED PRECAUTIONS I PLACE.
[2020-02-11 04:00] VITALS: BP 143/83
--- NOTE | 2020-02-11 04:00 | NUR ---
R HIP MEASURES 2.5X2.5 X 1CM DEPTH NO DRAINAGE NOTED. LEFT HIP MEASURES 3CM NO DRAINAGE NOTED. PT TURNED, CHANGED AND REPOSITIONED IN BED. WOUND CARE AND ORAL CARE PROVIDED. NEW FEEDING AND FLUIDS HUNG V/S FOLLOWS: T 97.6 P 98 R 18 B/P 142/83 02 98% WITH 2 LITERS VIA N/C. ALL FALLS AND ASPIRATION PROTOCOLS IN PLACE.
--- NOTE | 2020-02-11 06:00 | NUR ---
PT FINGERSTICK IS 123 NO HUMALOG COVERAGE NEEDED.
[2020-02-11] MEDS: BLOOD GLUCOSE MONITORING 1 DEV DEV FS SCH ×4 (06:39→21:06)
[2020-02-11 07:16] LABS: ANION GAP 10.7 (8-16); CARBON DIOXIDE 29.1 mmol/L (21-32); CHLORIDE 113 mmol/L (98-107); CREATININE 0.9 mg/dL (0.6-1.3); GLUCOSE 131 mg/dL (74-106); POTASSIUM 3.8 mmol/L (3.5-5.1); SODIUM SERUM 149 mmol/L (136-145); UREA NITROGEN, BLOOD 36 mg/dL (7-18)
[2020-02-11 07:17] LABS: BASOPHILS % (AUTO) 0.3 % (0.0-2.0); EOSINOPHILS # (AUTO) 0.2 K/uL (0-0.4); EOSINOPHILS % (AUTO) 3.2 % (0.0-4.0); HEMATOCRIT 23.9 % (36-52); LYMPHOCYTES # (AUTO) 1.5 K/uL (2.0-11.5); LYMPHOCYTES % (AUTO) 22.8 % (20.5-51.1); MEAN CORPUSCULAR HEMOGLOBIN 29 pg (27-31); MEAN CORPUSCULAR HGB CONC 34 g/dL (33-37); MONOCYTES # (AUTO) 0.6 K/uL (0.8-1.0); MONOCYTES % (AUTO) 9.8 % (1.7-9.3); NEUTROPHILS # (AUTO) 4.1 K/uL (1.8-7.7); NEUTROPHILS % (AUTO) 63.9 % (42.2-75.2); PLATELET COUNT (AUTO) 315 K/uL (140-450); RED BLOOD CELL COUNT(AUTO) 2.71 MIL/uL (4.20-6.10); RED CELL DISTRIBUTION WIDTH 18.6 % (11.6-13.7); WHITE BLOOD COUNT (AUTO) 6.4 K/uL (4.8-10.8)
--- NOTE | 2020-02-11 07:30 | NUR ---
RECEIVED REPORT FROM SPECIAL EDUCATION ASSOCIATE NURSE. PATIENT LYING DOWN IN BED. NO DISTRESS NOTED. FLACC 0. RESPIRATIONS EVEN, UNLABORED, ON O2 2L/MIN VIA NC. APHASIC, SKIN COLOR APPROPRIATE TO ETHNICITY, WARM TO TOUCH. HAS RIGHT AND LEFT HIP WOUNDS, AND RIGHT LATERAL WOUNDS. DRESSINGS DRY AND INTACT. IV SITE INTACT, PATENT, AND INFUSING IVF PER MD ORDERS. GTUBE SITE INTACT, PATENT, AND INFUSING GTUBE FEEDING PER MD ORDERS. REVIEWED PLAN OF CARE WITH PATIENT. UNABLE TO COMPREHEND. SAFETY MEASURES IN PLACE, CALL LIGHT WITHIN REACH. WILL CONTINUE TO MONITOR.
[2020-02-11 08:00] VITALS: BP 137/71
[2020-02-11] MEDS: MEMANTINE 10 MG TAB GT SCH (08:48)
[2020-02-11] MEDS: PANTOPRAZOLE 40 MG INJ VIAL IVP SCH (08:48)
[2020-02-11] MEDS: ZINC SULF 220 MG CAP PO SCH (08:48)
[2020-02-11] MEDS: ASCORBIC ACID 500 MG/5 ML ORASYR PO SCH ×2 (08:48→21:15)
[2020-02-11] MEDS: INSULIN LANTUS 100 UNITS/ML 10 ML VIAL SUBQ SCH (08:53)
[2020-02-11] MEDS: TRIAMCINOLONE 0.1% CRM 80 GM TUBE TP SCH ×2 (09:16→21:29)
--- NOTE | 2020-02-11 09:16 | NUR ---
ORAL CARE PERFORMED. SCHEDULED MEDICATIONS DUE GIVEN. GTUBE RESIDUAL CHECKED AT 5 ML, TOLERATING WELL. WILL CONTINUE TO MONITOR.
--- NOTE | 2020-02-11 11:40 | NUR ---
PATIENT LYING IN BED, AROUSBLE BY LIGHT PAIN. CONDITION UNCHANGED. WILL CONTINUE TO MONITOR.
[2020-02-11 12:00] VITALS: BP 133/55
[2020-02-11] MEDS: INSULIN LISPRO SLIDING SCALE 100 UNITS/ML VIAL SUBQ PRN ×2 (12:28→21:32)
[2020-02-11] MEDS: SKINTEGRITY HYDROGEL TP SCH (12:28)
[2020-02-11] MEDS: ALGINATE ROPE MC SCH (12:28)
--- NOTE | 2020-02-11 14:56 | NUR ---
PATIENT LYING DOWN IN BED. CONDITION UNCHANGED. WILL CONTINUE TO MONITOR.
[2020-02-11 16:00] VITALS: BP 133/55
--- NOTE | 2020-02-11 17:29 | NUR ---
ASSISTED SUPERVISOR AIRPLANE FLIGHT ATTENDANT IN CLEANING AND REPOSITIONING PATIENT. WILL CONTINUE TO MONITOR.
--- NOTE | 2020-02-11 19:10 | NUR ---
RECEIVED REPORT FROM GIANNA RNAYANNA. PT IS LYING IN BED ASLEEP, RESPIRATIONS EVEN AND UNLABORED ON O2 2L N/C. NO S/S RESPIRATORY DISTRESS. FLACC 0. IV SITE LFA 24G, PATENT AND INTACT, INFUSING D5 1/2 NS AT 100 ML/HR. SKIN WARM AND DRY. GTUBE, PATENT AND INTACT, INFUSING GTUBE FEEDING PER MD ORDER. PT HAS RIGHT AND LEFT HIP WOUNDS, RIGHT LATERAL WOUNDS, DRESSING DRY AND INTACT. SAFETY MEASURES IN PLACE. CALL LIGHT WITHIN REACH. WILL CONTINUE TO MONITOR
[2020-02-11 20:00] VITALS: BP 126/60
--- NOTE | 2020-02-11 21:36 | NUR ---
NO RESIDUAL NOTED ON GTUBE. ADMINISTERED SCHEDULED MEDS PER MD. PT BLOOD SUGAR 152. ADMINISTERED 2 UNITS INSULIN PER SLIDING SCALE. PT TOLERATED WELL. WILL CONTINUE TO MONITOR
--- NOTE | 2020-02-11 23:00 | NUR ---
PT ASLEEP IN BED. EASILY AROUSABLE TO VOICE AND LIGHT TOUC. NO DISTRESS NOTED. FLACC 0. WILL CONTINUE TO MONITOR
[2020-02-12] VITALS: BP 116/60
[2020-02-12] MEDS: Z-GUARD PASTE TP SCH ×2 (01:00→13:46)
--- NOTE | 2020-02-12 01:45 | NUR ---
PT ASLEEP IN BED. EYES OPEN SPONTANEOUSLY. FLACC 0. RESPIRATIONS EVEN AND UNLABORED. REPOSITIONED PT, TOLERATED WELL. NO DISTRESS NOTED. WILL CONTINUE TO MONITOR
[2020-02-12 04:00] VITALS: BP 112/53
--- NOTE | 2020-02-12 04:00 | NUR ---
CLEANED, CHANGED, TURNED PT, TOLERATED WELL. NO DISTRESS NOTED. WILL CONTINUE TO MONITOR
[2020-02-12 06:02] LABS: BASOPHILS % (AUTO) 0.4 % (0.0-2.0); EOSINOPHILS # (AUTO) 0.2 K/uL (0-0.4); EOSINOPHILS % (AUTO) 3.4 % (0.0-4.0); HEMATOCRIT 21.8 % (36-52); HEMOGLOBIN 7.1 g/dL (12.0-18.0); LYMPHOCYTES # (AUTO) 1.5 K/uL (2.0-11.5); MEAN CORPUSCULAR HEMOGLOBIN 28 pg (27-31); MEAN CORPUSCULAR HGB CONC 33 g/dL (33-37); MONOCYTES # (AUTO) 0.5 K/uL (0.8-1.0); NEUTROPHILS # (AUTO) 4.4 K/uL (1.8-7.7); NEUTROPHILS % (AUTO) 66.2 % (42.2-75.2); PLATELET COUNT (AUTO) 313 K/uL (140-450); RED BLOOD CELL COUNT(AUTO) 2.54 MIL/uL (4.20-6.10); RED CELL DISTRIBUTION WIDTH 18.5 % (11.6-13.7); WHITE BLOOD COUNT (AUTO) 6.7 K/uL (4.8-10.8)
[2020-02-12 06:22] LABS: ANION GAP 11.7 (8-16); CARBON DIOXIDE 26.9 mmol/L (21-32); CHLORIDE 112 mmol/L (98-107); CREATININE 0.8 mg/dL (0.6-1.3); GLUCOSE 176 mg/dL (74-106); POTASSIUM 3.6 mmol/L (3.5-5.1); SODIUM SERUM 147 mmol/L (136-145); UREA NITROGEN, BLOOD 34 mg/dL (7-18)
[2020-02-12] MEDS: DEXT 5% / NACL 0.45% 1,000 ML IV SCH (06:43)
[2020-02-12] MEDS: BLOOD GLUCOSE MONITORING 1 DEV DEV FS SCH ×3 (06:57→17:18)
--- NOTE | 2020-02-12 06:59 | NUR ---
PT BLOOD SUGAR 126. NO INSULIN COVERAGE NEEDED PER SLIDING SCALE
--- NOTE | 2020-02-12 07:40 | NUR ---
ENDORSED PT TO DAY RN FOR CONTINUITY OF CARE. PT IS IN STABLE CONDITION
--- NOTE | 2020-02-12 07:42 | NUR ---
RECEIVED BEDSIDE REPORT FROM SHANK INSPECTOR NURSE SUHAIL FOR CONTINUITY OF CARE. PATIENT IS ASLEEP ON BED AND AROUSABLE TO VOICE. RESPIRATION EVEN AND UNLABORED ON 2 LPM VIA NC. NO SIGNS OF ACUTE DISTRESS NOTED. IV ON LFA 24G, CLEAN AND INTACT, INFUSING IVF PER MD ORDER. AND R HAND 20G, SALINE LOCK. R & L PRESSURES ULCER ON HIP AND R LATERAL FOOT PRESSURE ULCER NOTED. G-TUBE IN PLACE AND RUNNING FEEDING VITAL AF PER MD ORDER. PATIENT IS INCONTINENT AND BEDREST. PARK ACTIVITIES COORDINATOR IN PLACE. SCD ON BILATERALLY AND WOUND BED ACTIVATED. SAFETY MEASURES IN PLACE. BED IN LOW POSITION AND CALL LIGHT WITHIN REACH.
[2020-02-12 08:00] VITALS: BP 141/66
[2020-02-12] MEDS: PANTOPRAZOLE 40 MG INJ VIAL IVP SCH (09:20)
[2020-02-12] MEDS: INSULIN LANTUS 100 UNITS/ML 10 ML VIAL SUBQ SCH (09:22)
[2020-02-12] MEDS: ZINC SULF 220 MG CAP PO SCH (09:26)
[2020-02-12] MEDS: MEMANTINE 10 MG TAB GT SCH (09:26)
[2020-02-12] MEDS: ASCORBIC ACID 500 MG/5 ML ORASYR PO SCH (09:26)
[2020-02-12] MEDS: TRIAMCINOLONE 0.1% CRM 80 GM TUBE TP SCH (09:27)
--- NOTE | 2020-02-12 09:27 | NUR ---
CHECKED BLOOD GLUCOSE AND RECEIVED 160 AND G-TUBE RESIDUAL, RECEIVED < 10 ML, FLUSH BEFORE AND AFTER MEDS, MEDS EDUCATION PROVIDED AND REINFORCEMENT NEEDED DUE TO PATIENT'S MENTAL STATUS. PATIENT IS RESTING ON BED WITH EYES CLOSED, RESPIRATION EVEN AND UNLABORED ON 2 LPM VIA NC, FLACC 0. PATIENT IS NOT ABLE TO FOLLOW COMMAND AND MAKE NEEDS KNOWN. AIR FILLER IN PLACE. SAFETY MEASURES IN PLACE. BED IN LOW POSITION, HOB ELEVATED 30 DEGREE, SCD ON BILATERALLY, WOUND BED ACTIVATED, CALL LIGHT WITHIN REACH.
--- NOTE | 2020-02-12 11:22 | NUR ---
SOCIAL WORK NOTE: Patient's Orientation Unable To Assess Information Provided By EDUARDKAYLAN PHIPPS - DAUGHTER IN LAW Comments SW WAS UNABLE TO MEET PATIENT AT BEDSIDE. SW CONTACTED PATIENT'S EMERGENCY CONTACT EVANGELIST PHIPPS WHO WAS PRESENT WITH HIS , EDUARD PHIPPS. SW COMPLETED ASSESSMENT WITH BOTH EVANGELIST AND EDUARD. Operation Manager, Realtionship and Phone Number EVANGELIST SILVA [phone] Healthcare Power of Corrections Sergeant No Does Patient Have a POLST No Identifying Problems No Social Work Triggers Is A Social Work Consult Needed No Mandate Report Filed No Explanation Of Identifying Problems PATIENT IS A 89-YEAR-OLD MALE ADMITTED FOR ANEMIA AND GI BLEED. PATIENT HAS PMHX OF COPD, FAILURE TO THRIVE, AND G TUBE FEEDING. PATIENT WAS ADMITTED FOR [facility]. Admitted From Care Home Facility Care Home [facility] - [phone] Pre-Admission Level Of Functioning Status Total Care Prior Resources/Services Used In Last 12 Months SNF Jail Care Prior Resources/Service Comments PATIENT IS MCFP AND ON A BED HOLD. Prior [facility] Bed Dialysis Comments EVANGELIST REPORTED THAT PATIENT DOES NOT RECEIVE DIALYSIS. Patient Had Caregiver No Home Support No Caregiver Issues Financial Issues No Known Financial Issue Referral To The Financial Counselor Needed No Factors/Needs SNF/NH Placement Explanation And Or Other Factors Affecting/Possible DC Needs EVANGELIST REPORTED THAT FAMILY PREFERS THAT PATIENT RETURNS TO [facility]. Pt/Rep Participated In Discharge Plan Yes Patient/Family Agress With Discharge Plan Yes Discharge Plan Comments TENTATIVE DISCHARGE PLAN IS FOR PATIENT TO RETURN TO [facility]. DC Plan Status Initiated Addendum: 02/12/20 at 1511 by Prince ABURTO PAULO CONTACTED EDUARD PHIPPS REGARDING HOSPICE FOR PATIENT. PER EDUARD, SHE HAS BEEN IN CONTACT WITH A HOSPICE BUT SHE CANNOT RECALL THE NAME. EDUARD STATED SHE WOULD CONTACT PAULO REGARDING WHAT HOSPICE SHE HAS CHOSE. Addendum: 02/12/20 at 1524 by Prince Bowden SS PAULO SPOKE WITH JULIO [phone]. PER JULIO, SHE IS AWAITING EMAIL FROM EDUARD, BUT SHE HAS RECEIVED CLINICAL PACKET REGARDING PATIENT. NO FURTHER NEEDS IDENTIFIED.
[2020-02-12] MEDS: INSULIN LISPRO SLIDING SCALE 100 UNITS/ML VIAL SUBQ PRN (11:36)
--- NOTE | 2020-02-12 11:37 | NUR ---
CHECKED BLOOD GLUCOSE AND RECEIVED 191, ADMINISTERED 2 UNIT OF HUMALOG FOR COVERAGE, PATIENT'S EYES OPEN TO SHAKING, FLACC 0. RESPIRATION EVEN AND UNLABORED ON 2 LPM VIA NC. NO SIGNS OF ACUTE DISTRESS NOTED. TELE MONITOR IN PLACE. SAFETY MEASURES IN PLACE. BED IN LOW POSITION, HOB ELEVATED 30 DEGREE, CALL LIGHT WITHIN REACH.
[2020-02-12] MEDS ORDERED: ROC2I IV (11:51)
[2020-02-12] MEDS ORDERED: LANTUS SUBQ (11:51)
[2020-02-12] MEDS ORDERED: DOCU-299 PO (11:51)
[2020-02-12 12:00] VITALS: BP 120/60
[2020-02-12] MEDS: SKINTEGRITY HYDROGEL TP SCH (13:46)
[2020-02-12] MEDS: FOAM DRESSING TP SCH (13:46)
[2020-02-12] MEDS: ALGINATE ROPE MC SCH (13:47)
--- NOTE | 2020-02-12 13:50 | NUR ---
WITH ASSIST FROM OFFAL WORKER, PROVIDED WOUND CARE INSTRUCTED, CHANGED ALL DRESSINGS AND APPLIED HEART-SHAPED OPTIFOAM ON SACRAL FOR PREVENTION. PATIENT TOLERATED FAIR. PATIENT'S EYES OPEN TO SHAKING AND TALKING FOR A COUPLE SECONDS. FALCC 0. NO SIGNS OF ACUTE DISTRESS NOTED. TELE MONITOR IN PLACE. SAFETY MEASURES IN PLACE. SCD ON BILATERALLY, WOUND BED ACTIVATED.
--- NOTE | 2020-02-12 14:39 | NUR ---
STARTED A NEW BOTTLE OF G-TUBE FEEDING VITAL AF 1.2, CHANGED ALL TUBING, CONTINUE INFUSING PER MD ORDER.
--- NOTE | 2020-02-12 15:13 | NUR ---
02/12/20 RD FOLLOW UP COMPLETED PLEASE REFER TO NUTRITION ASSESSMENT UNDER CARE ACTIVITY FOR ESTIMATED NUTRITIONAL NEEDS. 1. CONTINUE VITAL AF 1.2 @ 65 ML/HR. START AT 10 ML/HR AND INCREASE BY 20 ML/HR Q6H. -THIS WILL PROVIDE 1872 KCAL AND 117 GM OF PROTEIN, WHICH MEETS 100% OF ESTIMATED NUTRIENT NEEDS 2. CONTINUE FREE WATER FLUSH OF 100 ML Q4H 3. CONTINUE VITAMIN C 500 MG BID AND ZINC 220 MG ONCE DAILY 4. [address] TO FOLLOW-UP 2-3 DAYS, HIGH RISK JOSEFINA LAMBERT, RD
[2020-02-12 16:00] VITALS: BP 141/67
--- NOTE | 2020-02-12 16:55 | NUR ---
CHECKED BLOOD GLUCOSE AND RECEIVED 89, NO COVERAGE NEEDED. PATIENT HAS ONE SMALL BM, PAINT TECHNICIAN IS PROVIDING HYGIENE CARE. NO SIGNS OF ACUTE DISTRESS NOTED. TELE MONITOR IN PLACE. SAFETY MEASURES IN PLACE.
--- NOTE | 2020-02-12 18:09 | NUR ---
EDUARD [facility]IPPS - DAUGHTER IN LAW WAS AWARE THAT PATIENT WILL BE TRANSFER BACK TO [facility] BETWEEN 1830 TO 190.
--- NOTE | 2020-02-12 18:22 | NUR ---
CALLED [facility] AND SPOKE WITH BOB. PROVIDED FULL REPORT AND ANSWERED ALL QUESTIONS. BOB WAS AWARE THAT PATENT IS GOING TO TRANSFER TO HIS FACILITY BETWEEN 1830 TO 1900. PROVIDED A CALL BACK NUMBER FOR FURTHER QUESTION.
--- NOTE | 2020-02-12 19:15 | NUR ---
REMOVED ARM BANDS AND KEEP IV WITHIN FOR IV ABX TREATMENT. PROVIDED HARD COPY OF DISCHARGE DOCUMENT TO TRANSPORT PERSONNEL. PATIENT IS TRANSFERRING TO [facility] IN THIS TIME. PATIENT IS IN STABLE CONDITION.
== END 2020-02-12 19:15 | DRG 871 ==
LOC: MED 12:04 → EEVIPCON 15:48 → MTU 15:48
PROVIDERS: ADMIT Hospitalist; ATTEND Hospitalist
PROC: 0W9B3ZZ Drainage of Left Pleural Cavity, Percutaneous Approach (ICD-10-PCS; principal; 2020-02-09)
DX: A41.9 Sepsis, unspecified organism (principal); N17.0 Acute kidney failure with tubular necrosis; E43 Unspecified severe protein-calorie malnutrition; J96.01 Acute respiratory failure with hypoxia; N39.0 Urinary tract infection, site not specified; Z68.1 Body mass index [BMI] 19.9 or less, adult; K92.2 Gastrointestinal hemorrhage, unspecified; E87.1 Hypo-osmolality and hyponatremia; J90 Pleural effusion, not elsewhere classified; E11.9 Type 2 diabetes mellitus without complications; I10 Essential (primary) hypertension; D64.9 Anemia, unspecified; J44.9 Chronic obstructive pulmonary disease, unspecified; M81.0 Age-related osteoporosis without current pathological fracture; K21.9 Gastro-esophageal reflux disease without esophagitis; F32.9 Major depressive disorder, single episode, unspecified; G30.9 Alzheimer's disease, unspecified; F02.80 Dementia in other diseases classified elsewhere, unspecified severity, without behavioral disturbance, psychotic disturbance, mood disturbance, and anxiety; E86.1 Hypovolemia; D47.3 Essential (hemorrhagic) thrombocythemia; E83.41 Hypermagnesemia; R13.10 Dysphagia, unspecified; D63.8 Anemia in other chronic diseases classified elsewhere; Z20.828 Contact with and (suspected) exposure to other viral communicable diseases
CPT/HCPCS: 36415; 71045; 71250; 76604; 76942; 80048; 80053; 81001; 82272; 82945; 82948; 83036; 83690; 83735; 84100; 84157; 85025; 85610; 86886; 86900; 86901; 86920; 87040; 87070; 87075; 87081; 87086; 87205; 89051; 93005; 96361; 96365; 96375; 97110; 97112; 97161-GP; 97530; 99291; 99292; A4649; A6248; C9113; J0696; J1644; J1815; J2001; J7060; Q0092